=== PATIENT | female | born 1970 | race Caucasian/White ===

== ENCOUNTER 2017-03-14 14:33 | Inpatient (IN) | payer SELFPAY ==
[~2017-03-14] VITALS: Ht 165.1 cm; Wt 79.4 kg
[~2017-03-14 14:33] MED LIST: FLUD.1 PO; OXYC-392 PO; PANT40TA3 PO; POTA-163 PO
[2017-03-14 14:36] VITALS: BP 136/93; PULSE 127; RESP 20; TEMP 99.5; O2SAT 98
--- NOTE | 2017-03-14 15:15 | PD ---
Physical Exam Time Seen by Provider: 15:13 Narrative Resectional female presents with complaint of left fifth finger pain, swelling, bruising 4 days. Reports vomiting and diarrhea for 4 days. Unknown fevers. Unknown tetanus status. Denies IV drug use. + Lymphangitis to the left lower arm noted in triage. Patient seen in triage. VS reviewed. Awaiting bed placement. See next providers note for final patient disposition. Data Data Last Documented VS Vital Signs Date Time Temp Pulse Resp B/P (MAP) Pulse Ox O2 Delivery O2 Flow Rate FiO2 03/14/17 14:36 99.5 127 20 136/93 (107) 98 Room Air MDM Supervised Visit with TERESITA: Elly Mcclure Mar 14, 2017 15:15
[2017-03-14 15:39] VITALS: PULSE 101
--- NOTE | 2017-03-14 15:53 | PD ---
HPI Chief Complaint: Skin Problem Time Seen by Provider: 15:41 Travel History International Travel<30 days: No Contact w/Intl Traveler<30days: No Traveled to known affect area: No PFSH Past Medical History Anemia: Yes Arthritis: No Asthma: No Autoimmune Disease: No Bipolar Disorder: Yes Anxiety: Yes Depression: Yes Heart Rhythm Problems: No Cancer: No Cardiovascular Problems: Yes Chemotherapy: No Chest Pain: No Congestive Heart Failure: No COPD: No Cerebrovascular Accident: No Diabetes: No Diminished Hearing: No Endocrine: No Gastrointestinal Disorders: No GERD: No Genitourinary: No Hiatal Hernia: No Heparin Induced Thrombocytopen: No Hypertension: No Immune Disorder: No Implanted Vascular Access Dvce: No Kidney Stones: No Musculoskeletal: No Neurologic: No Psychiatric: Yes (CHRONIC ALCOHOLISM) Reproductive: No Respiratory: No Immunizations Current: Yes Migraines: Yes Radiation Therapy: No Schizophrenia: Yes Seizures: Yes Sickle Cell Disease: No Sleep Apnea: No Thyroid Disease: No Ulcer: No ?: Not Menopausal: Yes : 7 Para: 3 Miscarriage: 4 Tubal Ligation: Yes Past Surgical History Abdominal Surgery: No AICD: No Arteriovenous Shunt: No Cardiac Surgery: No Ear Surgery: No Endocrine Surgery: No Eye Surgery: No Genitourinary Surgery: No Gynecologic Surgery: Yes (Tubal Ligation ) Hysterectomy: Yes Insulin Pump: No Joint Replacement: No Neurologic Surgery: No Oral Surgery: No Pacemaker: No Thoracic Surgery: No Other Surgery: Yes (tubal ligation) Social History Alcohol Use: Yes ("COUPLE IN THE MORNING AND A COUPLE AT NIGHT") Tobacco Use: Yes (1 PPD) Substance Use: No Allergies-Medications (Allergen,Severity, Reaction): Coded Allergies: haloperidol (Unverified Allergy, Severe, 03/14/17) PT DENIES risperidone (Unverified Allergy, Severe, 03/14/17) *MDRO Multi-Drug Resistant Organism (Verified Adverse Reaction, Unknown, ) 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/2015 Reported Meds & Prescriptions Reported Meds & Active Scripts Active Potassium Chloride ER (Potassium Chloride) 20 Meq Tab 20 Meq PO DAILY Pantoprazole (Pantoprazole Sodium) 40 Mg Tab 40 Mg PO Q12HR 30 Days Review of Systems Except as stated in HPI: all other systems reviewed are Neg Data Data Last Documented VS Vital Signs Date Time Temp Pulse Resp B/P (MAP) Pulse Ox O2 Delivery O2 Flow Rate FiO2 03/14/17 15:39 101 03/14/17 15:25 16 03/14/17 14:36 99.5 98 Room Air Orders Orders Basic Metabolic Panel (Bmp) (03/14/17 16:12) Complete Blood Count With Diff (03/14/17 16:12) Iv Access Insert/Monitor (03/14/17 16:12) Ecg Monitoring (03/14/17 16:12) Oximetry (03/14/17 16:12) Sodium Chloride 0.9% Flush (Ns Flush) (03/14/17 16:15) Hand, Complete ([id number]) (03/14/17 ) Alcohol (Ethanol) (03/14/17 17:11) Blood Culture (03/14/17 17:11) Lactic Acid (03/14/17 17:11) Vancomycin Inj (Vancomycin Inj) (03/14/17 17:15) Piperacil-Tazo 4.5 Gm Premix (Zosyn 4.5 (03/14/17 17:15) Morphine Inj (Morphine Inj) (03/14/17 17:15) Sodium Chlor 0.9% 1000 Ml Inj (Ns 1000 M (03/14/17 17:15) Lidocaine 1% Inj (50 Ml) (Xylocaine 1% I (03/14/17 17:15) Vancomycin Inj (Vancomycin Inj) (03/14/17 18:00) Admit Order (Ed Use Only) (03/14/17 ) Labs Laboratory Tests Test 03/14/17 16:36 03/14/17 17:30 White Blood Count 12.0 TH/MM3 Red Blood Count 3.88 MIL/MM3 Hemoglobin 10.8 GM/DL Hematocrit 32.8 % Mean Corpuscular Volume 84.7 FL Mean Corpuscular Hemoglobin 27.7 PG Mean Corpuscular Hemoglobin Concent 32.8 % Red Cell Distribution Width 22.8 % Platelet Count 135 TH/MM3 Mean Platelet Volume 8.5 FL Neutrophils (%) (Auto) 83.0 % Lymphocytes (%) (Auto) 10.2 % Monocytes (%) (Auto) 5.9 % Eosinophils (%) (Auto) 0.2 % Basophils (%) (Auto) 0.7 % Neutrophils # (Auto) 9.9 TH/MM3 Lymphocytes # (Auto) 1.2 TH/MM3 Monocytes # (Auto) 0.7 TH/MM3 Eosinophils # (Auto) 0.0 TH/MM3 Basophils # (Auto) 0.1 TH/MM3 CBC Comment DIFF FINAL Differential Comment Blood Urea Nitrogen 4 MG/DL Creatinine 0.69 MG/DL Random Glucose 82 MG/DL Calcium Level 9.2 MG/DL Sodium Level 133 MEQ/L Potassium Level 4.0 MEQ/L Chloride Level 98 MEQ/L Carbon Dioxide Level 23.6 MEQ/L Anion Gap 11 MEQ/L Estimat Glomerular Filtration Rate 92 ML/MIN Ethyl Alcohol Level 179 MG/DL Lactic Acid Level 3.0 mmol/L MDM Medical Decision Making Medical Screen Exam Complete: Yes Emergency Medical Condition: Yes Rios Lloyd MD Mar 14, 2017 15:53
[2017-03-14] MEDS ORDERED: SODIUM CHLORIDE 0.9% FLUSH 10 ML FLUSH IV FLUSH PRN ×2 (16:15→19:00)
--- NOTE | 2017-03-14 16:52 | RADRPT ---
EXAM DATE/TIME: 03/14/2017 16:26 [place] COMPARISON: No previous studies available for comparison. INDICATIONS : Pain with no known injury. MEDICAL HISTORY : None. SURGICAL HISTORY : Tubal ligation. Hysterectomy. ENCOUNTER: Initial ACUITY: 4 - 6 days PAIN SCORE: 10/10 LOCATION: Right 5th Digit. FINDINGS: Three view examination of the right hand demonstrates no acute fracture or malalignment. There is sof t tissue swelling over the fifth digit. The carpal bones appear intact. The interphalangeal and meta carpophalangeal joints are intact. Bony mineralization is normal. CONCLUSION: Soft tissue swelling with no underlying bony abnormality. Ramsey Treviño MD on March 14, 2017 at 16:48 Board Certified Radiologist. This report was verified electronically.
[2017-03-14 17:01] LABS: AUTOMATED NEUTROPHIL # 9.9 TH/MM3 (1.8-7.7); BASOPHIL # 0.1 TH/MM3 (0-0.2); BASOPHIL % 0.7 % (0.0-2.0); EOSINOPHIL % 0.2 % (0.0-4.0); HEMATOCRIT 32.8 % (35.0-46.0); HEMOGLOBIN 10.8 GM/DL (11.6-15.3); LYMPH % 10.2 % (9.0-44.0); LYMPHOCYTE # 1.2 TH/MM3 (1.0-4.8); MEAN CELL VOLUME 84.7 FL (80.0-100.0); MEAN CORPUSCULAR HEMOGLOBIN 27.7 PG (27.0-34.0); MEAN CORPUSCULAR HGB CONC 32.8 % (32.0-36.0); MEAN PLATELET VOLUME 8.5 FL (7.0-11.0); MONO % 5.9 % (0.0-8.0); MONOCYTE # 0.7 TH/MM3 (0-0.9); PLATELET COUNT 135 TH/MM3 (150-450); RED BLOOD COUNT 3.88 MIL/MM3 (4.00-5.30); RED CELL DISTRIBUTION WIDTH 22.8 % (11.6-17.2)
[2017-03-14] MEDS ORDERED: SODIUM CHLOR 0.9% 1000 ML INJ 1,000 ML IV ONE (17:15)
[2017-03-14] MEDS ORDERED: MORPHINE SULFATE 2 MG/ML INJ IV PUSH ONE (17:15)
[2017-03-14] MEDS ORDERED: LIDOCAINE HCL 1% 50 ML VIAL INFIL ONE (17:15)
[2017-03-14] MEDS ORDERED: PIPERACIL-TAZO 4.5 GM PREMIX 100 ML IV ONE (17:15)
[2017-03-14] MEDS ORDERED: VANCOMYCIN INJ 200 ML IV SCH (17:15)
[2017-03-14 17:25] LABS: BICARBONATE 23.6 MEQ/L (21.0-32.0); CALCIUM 9.2 MG/DL (8.5-10.1); CREATININE 0.69 MG/DL (0.50-1.00)
--- NOTE | 2017-03-14 17:56 | PD ---
Physical Exam Time Seen by Provider: 17:[address] Lloyd asked me to incise and drain the blister of the left 5th finger. Data Data Last Documented VS Vital Signs Date Time Temp Pulse Resp B/P (MAP) Pulse Ox O2 Delivery O2 Flow Rate FiO2 03/14/17 15:39 101 03/14/17 15:25 16 03/14/17 14:36 99.5 98 Room Air Orders Orders Basic Metabolic Panel (Bmp) (03/14/17 16:12) Complete Blood Count With Diff (03/14/17 16:12) Iv Access Insert/Monitor (03/14/17 16:12) Ecg Monitoring (03/14/17 16:12) Oximetry (03/14/17 16:12) Sodium Chloride 0.9% Flush (Ns Flush) (03/14/17 16:15) Hand, Complete ([id number]) (03/14/17 ) Alcohol (Ethanol) (03/14/17 17:11) Blood Culture (03/14/17 17:11) Lactic Acid (03/14/17 17:11) Vancomycin Inj (Vancomycin Inj) (03/14/17 17:15) Piperacil-Tazo 4.5 Gm Premix (Zosyn 4.5 (03/14/17 17:15) Morphine Inj (Morphine Inj) (03/14/17 17:15) Sodium Chlor 0.9% 1000 Ml Inj (Ns 1000 M (03/14/17 17:15) Lidocaine 1% Inj (50 Ml) (Xylocaine 1% I (03/14/17 17:15) Vancomycin Inj (Vancomycin Inj) (03/14/17 18:00) Admit Order (Ed Use Only) (03/14/17 ) Labs Laboratory Tests Test 03/14/17 16:36 03/14/17 17:30 White Blood Count 12.0 TH/MM3 Red Blood Count 3.88 MIL/MM3 Hemoglobin 10.8 GM/DL Hematocrit 32.8 % Mean Corpuscular Volume 84.7 FL Mean Corpuscular Hemoglobin 27.7 PG Mean Corpuscular Hemoglobin Concent 32.8 % Red Cell Distribution Width 22.8 % Platelet Count 135 TH/MM3 Mean Platelet Volume 8.5 FL Neutrophils (%) (Auto) 83.0 % Lymphocytes (%) (Auto) 10.2 % Monocytes (%) (Auto) 5.9 % Eosinophils (%) (Auto) 0.2 % Basophils (%) (Auto) 0.7 % Neutrophils # (Auto) 9.9 TH/MM3 Lymphocytes # (Auto) 1.2 TH/MM3 Monocytes # (Auto) 0.7 TH/MM3 Eosinophils # (Auto) 0.0 TH/MM3 Basophils # (Auto) 0.1 TH/MM3 CBC Comment DIFF FINAL Differential Comment Blood Urea Nitrogen 4 MG/DL Creatinine 0.69 MG/DL Random Glucose 82 MG/DL Calcium Level 9.2 MG/DL Sodium Level 133 MEQ/L Potassium Level 4.0 MEQ/L Chloride Level 98 MEQ/L Carbon Dioxide Level 23.6 MEQ/L Anion Gap 11 MEQ/L Estimat Glomerular Filtration Rate 92 ML/MIN MDM Supervised Visit with TERESITA: Yes Narrative Course Dr. Lloyd asked me to incise and drain the blister of the left 5th finger. See my procedure note for incision and drainage. Procedures Procedure Narrative INCISION AND DRAINAGE OF ABSCESS: The area was prepped and was sterilely draped. The left fifth finger was digitally blocked with 1% lidocaine. A number 11 scalpel was used to make a less than 0.5 -cm incision across the base of the blister. The blister was drained. Cultures were obtained. Sterile dressing applied. Elly Martinez Mar 14, 2017 17:56
[2017-03-14] MEDS ORDERED: VANCOMYCIN 1,000 MG/NS 250 ML IV ONE ×2 (18:00)
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
[2017-03-14] MEDS ORDERED: BISACODYL 10 MG SUPP RECTAL PRN (19:00)
[2017-03-14] MEDS ORDERED: Vancomycin Consult Pharmacy 1 EA OTHER SCH (19:00)
[2017-03-14] MEDS ORDERED: MAGNESIUM HYDROXIDE SUSP 30 ML CUP PO PRN (19:00)
[2017-03-14] MEDS ORDERED: SENNOSIDES 8.6 MG TAB PO PRN (19:00)
[2017-03-14] MEDS ORDERED: LACTULOSE SYRUP 20 GM/30 ML CUP PO PRN (19:00)
[2017-03-14] MEDS ORDERED: ACETAMINOPHEN 325 MG TAB PO PRN (19:00)
[2017-03-14] MEDS ORDERED: LORazepam 2 MG/ML VIAL IV PUSH PRN ×3 (19:00)
[2017-03-14] MEDS ORDERED: LORazepam 2 MG TAB PO PRN (19:00)
[2017-03-14] MEDS ORDERED: FLUMAZENIL 0.5 MG/5 ML VIAL IV PUSH PRN (19:00)
--- NOTE | 2017-03-14 19:05 | HHI.HP ---
[facility] No Primary Care Physician Admission Diagnosis Finger infection, Sepsis. Diagnoses: (1) Sepsis Diagnosis: Principal (2) Finger infection Diagnosis: Principal (3) Alcohol abuse Diagnosis: Principal (4) Tobacco abuse Diagnosis: Principal Travel History International Travel<30 Days: No Contact w/Intl Traveler <30 Da: No Traveled to Known Affected Are: No History of Present Illness This is a 46-year-old female with a PMH of Anxiety, Depression, Bipolar Disorder , Alcohol Abuse and Tobacco Abuse who presented to the ER with complaints of left 5th finger swelling/pain for approx 3 days. States symptoms have been getting progressively worse, now w/ difficulty moving finger. Pain is severe, 10/10, constant, non-radiating. Denies fever or chills. On arrival, BP 136/93 , HR 127, O2 sat 98% on RA, Temp 99.5. WBC 12.0. Chemistry essentially unremarkable. Lactic Acid 3.0. Alcohol 179. Hand X-ray was soft tissue swelling, no underlying bony abnormality. S/p I&D of left 5th finger in ER. Blood/Wound Cultures, Vanc/Zosyn. Review of Systems Except as stated in HPI: all other systems reviewed are Neg ROS: 14 point review of systems otherwise negative. 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 No h/o DM or CAD Social History PAST SOCIAL HISTORY: Drinks daily. Smokes 1ppd. Negative for drugs. Physical Exam Vital Signs Vital Signs Date Time Temp Pulse Resp B/P (MAP) Pulse Ox O2 Delivery O2 Flow Rate FiO2 03/14/17 15:39 101 03/14/17 15:25 16 03/14/17 14:36 99.5 127 20 136/93 (107) 98 Room Air Physical Exam PE: GENERAL: Middle-aged white female in no acute distress, appears older than stated age. Friend at bedside. HEENT: PERRLA, EOMI. No scleral icterus or conjunctival pallor. No lid lag or facial droop. CARDIOVASCULAR: Regular rate and rhythm. No obvious murmurs to auscultation. No chest tenderness to palpation. RESPIRATORY: No obvious rhonchi or wheezing. Clear to auscultation. Breath sounds equal bilaterally. GASTROINTESTINAL: Abdomen soft, non-tender, nondistended. BS normal. MUSCULOSKELETAL: Extremities without clubbing, cyanosis, or edema. No obvious deformities. Left hand w/ 5th digit bruising/blistering/edema, decreased ROM of digit due to pain. Pulses intact. NEUROLOGICAL: Awake, alert and oriented x4. No focal neurologic deficits. Moving both upper and lower extremities spontaneously. Laboratory Laboratory Tests Test 03/14/17 16:36 03/14/17 17:30 White Blood Count 12.0 Red Blood Count 3.88 Hemoglobin 10.8 Hematocrit 32.8 Mean Corpuscular Volume 84.7 Mean Corpuscular Hemoglobin 27.7 Mean Corpuscular Hemoglobin Concent 32.8 Red Cell Distribution Width 22.8 Platelet Count 135 Mean Platelet Volume 8.5 Neutrophils (%) (Auto) 83.0 Lymphocytes (%) (Auto) 10.2 Monocytes (%) (Auto) 5.9 Eosinophils (%) (Auto) 0.2 Basophils (%) (Auto) 0.7 Neutrophils # (Auto) 9.9 Lymphocytes # (Auto) 1.2 Monocytes # (Auto) 0.7 Eosinophils # (Auto) 0.0 Basophils # (Auto) 0.1 CBC Comment DIFF FINAL Differential Comment Blood Urea Nitrogen 4 Creatinine 0.69 Random Glucose 82 Calcium Level 9.2 Sodium Level 133 Potassium Level 4.0 Chloride Level 98 Carbon Dioxide Level 23.6 Anion Gap 11 Estimat Glomerular Filtration Rate 92 Ethyl Alcohol Level 179 Lactic Acid Level 3.0 Date/Time Source Procedure Growth Status 03/14/17 17:30 Blood Peripheral Aerobic Blood Culture Pending Received 03/14/17 17:30 Blood Peripheral Anaerobic Blood Culture Pending Received 03/14/17 18:18 Wound Finger Gram Stain Pending Received 1/14/18 18:18 Wound Finger Wound Culture Pending Received Result Diagram: 03/14/17 1636 03/14/17 1636 Caprini VTE Risk Assessment Caprini VTE Risk Assessment: No/Low Risk (score <= 1) Caprini Risk Assessment Model Point Value = 1 Point Value = 2 Point Value = 3 Point Value = 5 Age 41-60 Minor surgery BMI > 25 kg/m2 Swollen legs Varicose veins or History of unexplained or recurrent spontaneous Oral contraceptives or hormone replacement Sepsis (< 1 month) Serious lung disease, including pneumonia (< 1 month) Abnormal pulmonary function Acute myocardial infarction Congestive heart failure (< 1 month) History of inflammatory bowel disease Medical patient at bed rest Age 61-74 Arthroscopic surgery Major open surgery (> 45 min) Laparoscopic surgery (> 45 min) Malignancy Confined to bed (> 72 hours) Immobilizing plaster cast Central venous access Age >= 75 History of VTE Family history of VTE Factor V Leiden Prothrombin [id number] Lupus anticoagulant Anticardiolipin antibodies Elevated serum homocysteine Heparin-induced thrombocytopenia Other congenital or acquired thrombophilia Stroke (< 1 month) Elective arthroplasty Hip, pelvis, or leg fracture Acute spinal cord injury (< 1 month) Prophylaxis Regimen Total Risk Factor Score Risk Level Prophylaxis Regimen 0-1 Low Early ambulation 2 Moderate Order ONE of the following: *Sequential Compression Device (SCD) *Heparin 5000 units SQ BID 3-4 Higher Order ONE of the following medications: *Heparin 5000 units SQ TID *Enoxaparin/Lovenox 40 mg SQ daily (WT < 150 kg, CrCl > 30 mL/min) *Enoxaparin/Lovenox 30 mg SQ daily (WT < 150 kg, CrCl > 10-29 mL/min) *Enoxaparin/Lovenox 30 mg SQ BID (WT < 150 kg, CrCl > 30 mL/min) AND/OR *Sequential Compression Device (SCD) 5 or more Highest Order ONE of the following medications: *Heparin 5000 units SQ TID (Preferred with Epidurals) *Enoxaparin/Lovenox 40 mg SQ daily (WT < 150 kg, CrCl > 30 mL/min) *Enoxaparin/Lovenox 30 mg SQ daily (WT < 150 kg, CrCl > 10-29 mL/min) *Enoxaparin/Lovenox 30 mg SQ BID (WT < 150 kg, CrCl > 30 mL/min) AND *Sequential Compression Device (SCD) Assessment and Plan Problem List: (1) Sepsis ICD Code: A41.9 - Sepsis, unspecified organism Status: Acute (2) Finger infection ICD Code: L08.9 - Local infection of the skin and subcutaneous tissue, unspecified (3) Alcohol abuse ICD Code: F10.10 - Alcohol abuse, uncomplicated Status: Chronic (4) Tobacco abuse ICD Code: Z72.0 - Tobacco use Status: Chronic Assessment and Plan A/P: 1. Sepsis: Temp 99.5, HR 127, Lactic Acid 3.0, Source-Finger Infection. S/p Blood/Wound Cultures, Vanc/Zosyn. Follow up cultures, continue IV Abx, repeat Lactic Acid. IVF for hydration. 2. Left Finger Infection: +bruising/blistering/edema, decreased ROM, s/p I&D in ER, follow up cultures. Continue w/ broad spectrum antibiotics, consult Hand for further evaluation, possible surgical intervention. Wound Management as needed. X-ray w/ soft tissue swelling, no acute bony abnormality, images reviewed by me. 3. Alcohol Abuse: Drinks Daily. Alcohol 179. High risk for withdrawal, Seizure Precautions, Ativan, MVT/Thiamine/Folate 4. Tobacco Abuse: Pt counselled. NicoDerm prn if needed. 5. DVT Prophylaxis: SCD/Teds. 6. Social work for d/c planning as needed. Pt is homeless 7. Labs/records/imaging reviewed by me, case discussed at length w/ ER physician. Physician Certification 2 Midnight Certification Type: Admission for Inpatient Services Order for Inpatient Services The services are ordered in accordance with Medicare regulations or non- Medicare payer requirements, as applicable. In the case of services not specified as inpatient-only, they are appropriately provided as inpatient services in accordance with the 2-midnight benchmark. Estimated LOS (days): 2 days is the estimated time the patient will need to remain in the hospital, assuming treatment plan goals are met and no additional complications. Post-Hospital Plan: Not yet determined Nita Marquez MD Mar 14, 2017 19:05
[2017-03-14] MEDS: LORazepam 2 MG/ML VIAL IV PUSH PRN ×2 (20:17→20:26)
[2017-03-14 21:00] VITALS: BP 138/83; PULSE 110; RESP 18; TEMP 98.1; O2SAT 98
[2017-03-14] MEDS ORDERED: VANCOMYCIN INJ 750 MG in SODIUM CHLOR 0.9% 250 ML INJ 250 ML IV ONE (21:00)
[2017-03-14] MEDS: SODIUM CHLORIDE 0.9% FLUSH 10 ML FLUSH IV FLUSH SCH (21:00)
[2017-03-14] MEDS: MORPHINE SULFATE 2 MG/ML INJ IV PUSH PRN (22:04)
[2017-03-14] MEDS: DOCUSATE SODIUM 50 MG/SENNA 8.6 MG TAB PO SCH (22:15)
[2017-03-14] MEDS: SODIUM CHLOR 0.9% 1000 ML INJ 1,000 ML IV SCH (22:19)
[2017-03-14] MEDS: ONDANSETRON HCL 4 MG/2 ML VIAL IVP PRN (23:00)
[2017-03-15] VITALS (7 sets, daily range): BP systolic 133–148; BP diastolic 72–92; PULSE 80–127; RESP 17–20; TEMP 98.3–100.6; O2SAT 94–97
[2017-03-15] MEDS: MORPHINE SULFATE 2 MG/ML INJ IV PUSH PRN (05:23)
[2017-03-15] MEDS: SODIUM CHLOR 0.9% 1000 ML INJ 1,000 ML IV SCH ×2 (05:23→13:54)
[2017-03-15] MEDS: LORazepam 1 MG TAB PO PRN ×3 (05:23→20:40)
[2017-03-15 08:20] LABS: BASOPHIL # 0.1 TH/MM3 (0-0.2); BASOPHIL % 0.9 % (0.0-2.0); EOSINOPHIL % 0.4 % (0.0-4.0); HEMATOCRIT 29.3 % (35.0-46.0); HEMOGLOBIN 9.8 GM/DL (11.6-15.3); LYMPH % 12.6 % (9.0-44.0); LYMPHOCYTE # 1.3 TH/MM3 (1.0-4.8); MEAN CORPUSCULAR HEMOGLOBIN 28.5 PG (27.0-34.0); MEAN CORPUSCULAR HGB CONC 33.5 % (32.0-36.0); MEAN PLATELET VOLUME 8.4 FL (7.0-11.0); MONO % 10.3 % (0.0-8.0); MONOCYTE # 1.1 TH/MM3 (0-0.9); NEUT % 75.8 % (16.0-70.0); PLATELET COUNT 107 TH/MM3 (150-450); RED BLOOD COUNT 3.45 MIL/MM3 (4.00-5.30); RED CELL DISTRIBUTION WIDTH 21.9 % (11.6-17.2); WHITE BLOOD COUNT 10.5 TH/MM3 (4.0-11.0)
[2017-03-15] MEDS: SODIUM CHLORIDE 0.9% FLUSH 10 ML FLUSH IV FLUSH SCH ×2 (08:35→20:41)
[2017-03-15] MEDS: PANTOPRAZOLE SOD 40 MG DELAYED RELEASE TAB PO SCH ×2 (08:35→20:41)
[2017-03-15] MEDS: MULTIVITAMINS/MINERALS THERAPEUTIC TAB PO SCH (08:35)
[2017-03-15] MEDS: VANCOMYCIN INJ 1,250 MG in SODIUM CHLOR 0.9% 250 ML INJ 250 ML IV SCH ×2 (08:35→22:07)
[2017-03-15] MEDS: THIAMINE HCL 100 MG TAB PO SCH (08:35)
[2017-03-15] MEDS: DOCUSATE SODIUM 50 MG/SENNA 8.6 MG TAB PO SCH ×2 (08:35→20:41)
[2017-03-15] MEDS: FOLIC ACID 1 MG TAB PO SCH (08:35)
[2017-03-15] MEDS: CEFEPIME INJ 1,000 MG in SODIUM CHLORIDE 0.9% INJ 100 ML IV SCH ×2 (08:36→20:42)
[2017-03-15 08:51] LABS: ALBUMIN 3.4 GM/DL (3.4-5.0); ALKALINE PHOSPHATASE 119 U/L (45-117); ALT (GPT) 42 U/L (10-53); AST (GOT) 68 U/L (15-37); BICARBONATE 25.2 MEQ/L (21.0-32.0); BLOOD UREA NITROGEN 4 MG/DL (7-18); CALCIUM 8.9 MG/DL (8.5-10.1); CHLORIDE 98 MEQ/L (98-107); CREATININE 0.54 MG/DL (0.50-1.00); GLOMERULAR FILTRATION RATE 122 ML/MIN (>89); GLUCOSE,RANDOM 96 MG/DL (74-106); SODIUM (NA) 133 MEQ/L (136-145); TOTAL BILIRUBIN ADULT 0.9 MG/DL (0.2-1.0); TOTAL PROTEIN 8.5 GM/DL (6.4-8.2)
[2017-03-15] MEDS: ACETAMINOPHEN/HYDROcodone 325 MG/5 MG TAB PO PRN (11:38)
[2017-03-15] MEDS ORDERED: DEXAMETHASONE SOD PHOS 4 MG/ML VIAL IV ONE (12:00)
[2017-03-15] MEDS ORDERED: GLYCOPYRROLATE 1 MG/5 ML SYRINGE IV PUSH ONE (12:00)
[2017-03-15] MEDS ORDERED: ONDANSETRON HCL 4 MG/2 ML VIAL IV PUSH ONE (12:00)
[2017-03-15] MEDS ORDERED: LIDOCAINE HCL 1% PF 5 ML SYRINGE OTHER ONE (12:00)
[2017-03-15] MEDS ORDERED: PROPOFOL 200 MG/20 ML AMP IV ONE (12:00)
--- NOTE | 2017-03-15 14:39 | MB ---
cc: YUDITH AGUILLON III, M.D. DATE OF CONSULTATION 03/14/2017 HISTORY OF PRESENT ILLNESS The patient is a 46-year-old female who looks much older than her stated age, who was admitted yesterday and I was consulted late last night. She has soft tissue swelling in her left hand, especially around her small finger with no real history on how it happened. The patient is a poor historian. She does not know how it happened. She denies any injury to it. She had very limited incision and drainage of a blister in the emergency room yesterday which was ineffective, so we need to go to the operating room today. PAST MEDICAL HISTORY 1. Anxiety. 2. Depression. 3. Bipolar border. 4. Alcohol abuse. 5. Tobacco abuse. 6. Elevated liver enzymes. PAST SURGICAL HISTORY 1. Tubal ligation. 2. Hysterectomy. ALLERGIES 1. HALOPERIDOL. 2. RISPERIDONE. SOCIAL HISTORY Smokes one pack per day. Drinks alcohol daily. FAMILY HISTORY Noncontributory to this illness. REVIEW OF SYSTEMS Patient is not complaining of any weight loss or weight gain. She is not complaining of any cough, wheezing or shortness breath. She is not complaining of any chest pain or palpitations. She is not complaining of any nausea, vomiting or abdominal pain. She is not complaining of any burning, frequency or urgency with urination. She is not complaining of any spine, neck or back pain. She is not complaining of any anxiety, depression or suicidal ideation. She is not complaining of any lesions, rashes or eruptions except for the left fifth finger. LABORATORY White blood cell count was 12,010, down to 10,000 thousand; hemoglobin 9.8, platelet count 107,000. Elevated liver enzymes. Culture of the left fifth finger yesterday grew out staph species as well as group-A beta strep. MEDICATIONS Her in the hospital she is on: 1. Folic acid. 2. Thiamine. 3. Multivitamins. 4. Cefepime. 5. Vancomycin. 6. Protonix. 7. Ativan. 8. Zofran. 9. Baker. 10.Morphine. PHYSICAL EXAMINATION GENERAL: Well-developed, well-nourished, in no apparent distress lying comfortably in her bed with her left arm in a sling, but in bed dependent. VITAL SIGNS: Temperature 99.2, blood pressure 134/85, heart rate 97, respiratory rate 16. LEFT UPPER EXTREMITY: There is full active range of motion. There is no edema or induration in the hand. She does have significant edema and superficial epidermolysis with fluid collection underneath most of the skin of the left fifth finger. It was not decompressed adequately in a more conservative manner and needs to be treated more aggressively. There is no proximal streaking across the wrist. There is capillary refill of less than two seconds in all fingertips. The skin is otherwise normal in appearance and temperature. Her respiratory effort is normal. She is otherwise pleasant. IMPRESSION Left fifth finger abscess. PLAN The plan is to go to the operating room later today for incision and drainage/debridement of the left fifth finger. I discussed this with the patient. She understands and is requesting we proceed. MD JAGDISH Ruiz III/RIMMA /1:54 PM /2:19 PM
[2017-03-15] MEDS: ONDANSETRON HCL 4 MG/2 ML VIAL IVP PRN (14:44)
[2017-03-15] MEDS ORDERED: LIDOCAINE HCL 2% 50 ML VIAL ONE (18:11)
[2017-03-15] MEDS ORDERED: BUPIVACAINE HCL PF 0.5% 30 ML VIAL ONE (18:11)
[2017-03-15] MEDS ORDERED: NEOMYCIN/POLYMYXIN 1 ML G.U. IRRIGANT ONE (18:13)
[2017-03-15] MEDS ORDERED: NEOMYCIN/POLYMYXIN 1 ML G.U. IRRIGANT IRRIGATION ONE (19:13)
[2017-03-15] MEDS ORDERED: DO NOT ADM ANY ANTICOAGULANT DRUGS PRN (19:45)
--- NOTE | 2017-03-15 20:08 | HHI.PR ---
Subjective Remarks Patient seen this morning. Reports pain is controlled. Denies any chest pain or shortness of breath. She does report occasional nausea and nonbloody vomiting which has resolved Objective Vital Signs Date Time Temp Pulse Resp B/P (MAP) Pulse Ox O2 Delivery O2 Flow Rate FiO2 03/15/17 19:45 82 16 122/81 (95) 97 Room Air 03/15/17 19:30 96 16 113/73 (86) 97 Room Air 03/15/17 19:21 98.2 88 16 121/79 (93) 100 03/15/17 16:00 99.1 80 20 148/89 (108) 95 03/15/17 12:46 16 03/15/17 12:00 99.2 97 20 134/85 (101) 95 03/15/17 08:11 98.5 109 20 139/92 (108) 95 03/15/17 07:49 127 03/15/17 04:00 100.6 109 19 141/89 (106) 97 03/15/17 00:00 98.3 107 18 133/84 (100) 96 03/14/17 21:00 98.1 110 18 138/83 (101) 98 I/O 03/14/17 03/14/17 03/14/17 03/15/17 03/15/17 03/15/17 07:00 15:00 23:00 07:00 15:00 23:00 Intake Total 1100 ml 1315 ml 300 ml Output Total 5 ml Balance 1100 ml 1315 ml 295 ml Intake IV Total 1100 ml 1315 ml Other 300 ml Output Estimated Blood Loss 5 ml # Voids 3 5 # Bowel Movements 0 0 Result Diagram: 03/15/17 0800 03/15/17 0800 A/P Assessment and Plan //Sepsis: Temp 99.5, HR 127, Lactic Acid 3.0, Source-Finger Infection. S/p Blood/Wound Cultures, Vanc/Zosyn. Follow up cultures, continue IV Abx, repeat Lactic Acid. IVF for hydration. = Group A beta strep and staph. Continue IV antibiotics. Follow-up susceptibilities. // Left Finger Infection: +bruising/blistering/edema, decreased ROM, s/p I&D in ER, follow up cultures. Continue w/ broad spectrum antibiotics, consult Hand for further evaluation, possible surgical intervention. Wound Management as needed. X-ray w/ soft tissue swelling, no acute bony abnormality, images reviewed by me. =Hand surgery continues to follow. Continue broad-spectrum anabiotic. Follow- up cultures sensitivities //Alcohol Abuse: Drinks Daily. Alcohol 179. High risk for withdrawal, Seizure Precautions, Ativan, MVT/Thiamine/Folate = No current signs of withdrawal. Continue to monitor // Tobacco Abuse: Pt counselled. NicoDerm prn if needed. //hypokalemia. Potassium 3.1. Replaced. Recheck tomorrow. // DVT Prophylaxis: SCD/Teds. Discharge Planning pending culture results. And surgery continues to follow. Pending final recommendations. Ben Blanton MD Mar 15, 2017 20:08
[2017-03-15] MEDS ORDERED: POTASSIUM CHLORIDE 10 MEQ CONTROLLED RELEASE TAB PO ONE (20:15)
[2017-03-15] MEDS ORDERED: predniSONE 20 MG TAB PO ONE (20:45)
[2017-03-16] VITALS (10 sets, daily range): BP systolic 111–153; BP diastolic 62–89; PULSE 73–101; RESP 17–18; TEMP 98.1–99.1; O2SAT 95–98
[2017-03-16] MEDS: SODIUM CHLOR 0.9% 1000 ML INJ 1,000 ML IV SCH ×2 (00:59→07:59)
[2017-03-16] MEDS: ACETAMINOPHEN/HYDROcodone 325 MG/5 MG TAB PO PRN ×2 (05:15→16:50)
[2017-03-16] MEDS: THIAMINE HCL 100 MG TAB PO SCH (07:49)
[2017-03-16] MEDS: MULTIVITAMINS/MINERALS THERAPEUTIC TAB PO SCH (07:49)
[2017-03-16] MEDS: FOLIC ACID 1 MG TAB PO SCH (07:50)
[2017-03-16] MEDS: DOCUSATE SODIUM 50 MG/SENNA 8.6 MG TAB PO SCH ×2 (07:50→19:53)
[2017-03-16] MEDS: predniSONE 20 MG TAB PO SCH (07:50)
[2017-03-16] MEDS: SODIUM CHLORIDE 0.9% FLUSH 10 ML FLUSH IV FLUSH SCH ×2 (07:50→21:00)
[2017-03-16] MEDS: PANTOPRAZOLE SOD 40 MG DELAYED RELEASE TAB PO SCH ×2 (07:50→19:53)
[2017-03-16] MEDS: CEFEPIME INJ 1,000 MG in SODIUM CHLORIDE 0.9% INJ 100 ML IV SCH (07:51)
[2017-03-16] MEDS: LORazepam 1 MG TAB PO PRN (07:57)
[2017-03-16] MEDS ORDERED: PHARMACY ORDERED LAB ONE (08:45)
[2017-03-16] MEDS: VANCOMYCIN INJ 1,250 MG in SODIUM CHLOR 0.9% 250 ML INJ 250 ML IV SCH (09:47)
[2017-03-16 10:53] LABS: ALBUMIN 2.8 GM/DL (3.4-5.0); BICARBONATE 20.4 MEQ/L (21.0-32.0); CALCIUM 8.5 MG/DL (8.5-10.1); CREATININE 0.46 MG/DL (0.50-1.00); MAGNESIUM 2.2 MG/DL (1.5-2.5); PHOSPHORUS 2.4 MG/DL (2.5-4.9)
--- NOTE | 2017-03-16 13:48 | PD.WCN.NOT ---
Wound Consult Description: Wound consult ordered by for generalized Communicated with: Haider BARAHONA [address] [place] [address], Recommendation: 1) Cleanse Left 5th digit with normal saline pat dry 2) Apply Xeroform to beefy red tissue 3) Cover with nonadhesive gauze 4) Secure with rolled gauze and tape 5) Change dressing daily 6) Follow up with surgeon. Additional Information: Patient was seen today on [address] [place] [address] by copywriter and Haider BARAHONA [address] [place] [address]. Patient alert in bed dressing removed to Left 5th digit to expose Beefy red 50% glandular tissue and 50% red/pink tissue measuring ~4.6cm x ~2.0cm .Digit cleansed with normal saline pat dry Xeroform applied in single layer to open tissue.Covered with non adhering dressing secured with rolled gauze/tape.Patient tolerated wound care well. Shi Greco [facility] Mar 16, 2017 13:47
--- NOTE | 2017-03-16 14:29 | MP ---
cc: CHOLO PÉREZ III, M.D. DATE OF SURGERY: 03/15/2017 PREOPERATIVE DIAGNOSIS: Left finger abscess. POSTOPERATIVE DIAGNOSIS: Left finger abscess, pyoderma gangrenosum. OPERATION: Incision and drainage left fifth finger. SURGEON Cholo Pérez III, MD. PROCEDURE The patient brought to the operating room placed supine on the operating room table after the correct site of surgery were verified by members of each team, multiple times including the patient myself and after adequate preop markings preoperative written consent was verified by one, after adequate preop time-out was performed with satisfaction after adequate general anesthesia achieved, left upper extremity prepped and draped in traditional sterile surgical fashion. The left fifth finger was examined and found to be superficially blistered along its entire volar and dorsal surface. There was purulent fluid within the blisters and these were sharply excised without disturbing the underlying skin. There was a scalded appearance of all the surfaces of the skin of the finger which is very suspicious for diagnosis of pyoderma gangrenosum. At this point I was a large pressed to do any more dissection for fear of worsening the inflammatory response. The finger was gently irrigated and Xeroform dressing was applied around the wound over the entire finger non circumferentially with a bulky sterile dressing was applied. Hemostasis was present. Capillary refill is less than 2 seconds in all fingertips including the fifth finger bulky soft, protective dressing was applied. The patient was awakened from anesthesia and transported to Post Anesthesia Care Unit, was awake and in stable condition at the end of the case. The sponge and needle, instrument count correct at the case as reported by nurses in the room. MD JAGDISH Ruiz III/dima /7:19 PM /10:02 AM
--- NOTE | 2017-03-16 14:44 | MB ---
cc: PAPITO BAINS MD DATE OF CONSULTATION 03/16/[address] Blanton REASON FOR CONSULTATION Positive blood cultures. HISTORY OF PRESENT ILLNESS This is a 46-year-old white female who presented to the emergency department with an injury to her left fifth finger. The patient was noted to have lymphangitis at the left arm as well. She was evaluated with an x-ray of the hand which showed soft tissue swelling. The patient is a poor historian. The only thing she remembers was having an area of swelling at the tip of the left fifth finger and then it spread and became painful. She had low grade fever of 100.6 degrees early yesterday. Blood cultures were taken on admission and one bottle has gram-positive cocci. A wound culture was taken from the finger on 03/14 after it was lanced in the ED. This culture has growth of MRSA and group B beta strep. The patient was taken to surgery by the hand surgeon for incision and debridement of the wound yesterday. A new culture was also taken at that time. The results are pending. The white blood cell was 12.0 on 03/14 and today it is 10.5. PAST MEDICAL HISTORY 1. Anxiety depression 2. Bipolar disorder 3. Alcohol abuse 4. Tobacco abuse 5. History of tubal ligation. 6. History of hysterectomy. ALLERGIES HALOPERIDOL, RISPERDONE. MEDICATIONS 1. Vancomycin 2. Prednisone 3. cefepime 4. Theragran 5. Thiamine 6. Folate 7. Protonix 8. Florencia-Colace 9. [place] five p.r.n. SOCIAL HISTORY The patient smokes a pack of cigarettes a day. Positive daily alcohol use. No illicit drugs. FAMILY HISTORY Noncontributory REVIEW OF SYSTEMS Negative on 10-point review except for pain in the left finger. PHYSICAL EXAM This is a slender female who is in no acute distress. She is awake, alert and oriented. VITAL SIGNS: Include a temperature 98.7, BP 153/89, heart rate 90, respirations 17. HEENT: The head is atraumatic. Extraocular movements grossly intact, pupils reactive to light. No icterus. Oropharynx moist mucosa without lesions. NECK: Supple. LUNGS: Clear to auscultation. HEART: Regular S1 and S2 without murmurs, rubs or gallops. ABDOMEN: Bowel sounds present, soft, nontender. RECTAL: Not performed. EXTREMITIES: The left fifth finger is wrapped in a surgical dressing and this was not removed for inspection at this time. No visible erythema at the wrist or above. The remaining extremities have no clubbing, cyanosis or edema. SKIN: No visible rash. NEUROLOGIC: No gross focal findings. PSYCH: The patient cannot cooperate. LABORATORY DATA WBC 10.5, platelets 107, hemoglobin 9.8, 75% neutrophils, 12% lymphocytes, 10% monocytes, creatinine 0.14, BUN 5, sodium 133. IMPRESSION 1. Bacteremia due to gram-positive cocci with blood culture showing gram- positive cocci in one bottle of four which is very likely contamination. 2. Abscess of the left fifth finger due to MRSA and group B beta strep. RECOMMENDATIONS 1. Continue vancomycin 2. Discontinue cefepime 3. Monitor the new culture from the wound and also monitor clinical response to antibiotic. The patient's progress will be monitored and further recommendations will be given on antibiotic treatment on followup. Papito Bains MD FD/JAMI /12:33 PM /12:48 PM RALPH
--- NOTE | 2017-03-16 15:50 | HHI.PR ---
Subjective Remarks Patient seen today around 1 PM. Says she is feeling all right. Reports pain is controlled. Denies any chest pain or shortness of breath. Denies any nausea or vomiting. Objective Vital Signs Date Time Temp Pulse Resp B/P (MAP) Pulse Ox O2 Delivery O2 Flow Rate FiO2 03/16/17 11:58 98.7 90 17 153/89 (110) 97 03/16/17 08:11 98.6 93 17 127/86 (100) 95 03/16/17 07:39 73 03/16/17 05:12 98.7 73 17 114/62 (79) 97 03/16/17 04:06 81 03/16/17 00:30 98.1 101 17 111/62 (78) 96 03/15/17 20:30 98.6 84 17 135/72 (93) 94 03/15/17 19:45 82 16 122/81 (95) 97 Room Air 03/15/17 19:30 96 16 113/73 (86) 97 Room Air 03/15/17 19:21 98.2 88 16 121/79 (93) 100 03/15/17 16:00 99.1 80 20 148/89 (108) 95 I/O 03/15/17 03/15/17 03/15/17 03/16/17 03/16/17 03/16/17 07:00 15:00 23:00 07:00 15:00 23:00 Intake Total 1315 ml 400 ml 490 ml Output Total 5 ml Balance 1315 ml 395 ml 490 ml Intake Oral 240 ml IV Total 1315 ml 100 ml 250 ml Other 300 ml Output Estimated Blood Loss 5 ml # Voids 5 2 4 # Bowel Movements 0 Result Diagram: 03/15/17 0800 03/16/17 0925 Objective Remarks GENERAL: Patient sitting up in bed. Appears comfortable. Alert and oriented 3. SKIN: Warm and dry. HEAD: Normocephalic. EYES: No scleral icterus. No injection or drainage. NECK: Supple, trachea midline. No JVD. CARDIOVASCULAR: Regular rate and rhythm without murmurs, gallops, or rubs. RESPIRATORY: Breath sounds equal bilaterally. No accessory muscle use. GASTROINTESTINAL: Abdomen soft, non-tender, nondistended. MUSCULOSKELETAL: No cyanosis, or edema. Left hand dressed. Peripheral perfusion intact. BACK: Nontender without obvious deformity. No CVA tenderness. A/P Assessment and Plan //Severe Sepsis on admission - due to lactic acid 3.0: Temp 99.5, HR 127, Lactic Acid 3.0, Source-Finger Infection MRSA. S/p Blood/Wound Cultures, Vanc/Zosyn. Follow up cultures, continue IV Abx, repeat Lactic Acid. IVF for hydration. = Group A beta strep and staph. Continue IV antibiotics. Follow-up susceptibilities. -ID following. Antibiotics as per infectious disease. Follow-up Final wound susceptibilities //Gram-positive bacteremia. Likely contamination as per infectious disease. Appreciate assistance. // Left Finger Infection: +MRSA - +bruising/blistering/edema, decreased ROM, s/p I&D in ER, follow up cultures. Continue w/ broad spectrum antibiotics, consult Hand for further evaluation, possible surgical intervention. Wound Management as needed. X-ray w/ soft tissue swelling, no acute bony abnormality, images reviewed by me. =Hand surgery continues to follow. Continue broad-spectrum anabiotic. Follow- up cultures sensitivities //Alcohol Abuse: Drinks Daily. Alcohol 179. High risk for withdrawal, Seizure Precautions, Ativan, MVT/Thiamine/Folate = No current signs of withdrawal. Continue to monitor // Tobacco Abuse: Pt counselled. NicoDerm prn if needed. //hypokalemia. Potassium 3.4. Replaced again. Recheck tomorrow. // DVT Prophylaxis: SCD/Teds. Discharge Planning pending culture results. hand surgery continues to follow. Pending final recommendations. Ben Blanton MD Mar 16, 2017 15:50
[2017-03-16] MEDS ORDERED: POTASSIUM CHLORIDE 10 MEQ CONTROLLED RELEASE TAB PO ONE (16:00)
[2017-03-16] MEDS: VANCOMYCIN 1,000 MG/NS 250 ML IV SCH ×2 (16:49)
[2017-03-17] VITALS (10 sets, daily range): BP systolic 117–148; BP diastolic 59–88; PULSE 73–109; RESP 17–18; TEMP 97.8–98.3; O2SAT 95–100
[2017-03-17] MEDS: VANCOMYCIN 1,000 MG/NS 250 ML IV SCH ×6 (02:19→17:40)
[2017-03-17] MEDS: ACETAMINOPHEN/HYDROcodone 325 MG/5 MG TAB PO PRN ×5 (02:22→21:33)
[2017-03-17] MEDS: SODIUM CHLOR 0.9% 1000 ML INJ 1,000 ML IV SCH ×2 (06:59→07:27)
[2017-03-17] MEDS: SODIUM CHLORIDE 0.9% FLUSH 10 ML FLUSH IV FLUSH SCH ×2 (09:00→21:33)
[2017-03-17] MEDS: THIAMINE HCL 100 MG TAB PO SCH (09:30)
[2017-03-17] MEDS: MULTIVITAMINS/MINERALS THERAPEUTIC TAB PO SCH (09:30)
[2017-03-17] MEDS: DOCUSATE SODIUM 50 MG/SENNA 8.6 MG TAB PO SCH ×2 (09:31→21:33)
[2017-03-17] MEDS: PANTOPRAZOLE SOD 40 MG DELAYED RELEASE TAB PO SCH ×2 (09:31→21:33)
[2017-03-17] MEDS: FOLIC ACID 1 MG TAB PO SCH (09:31)
[2017-03-17] MEDS: predniSONE 20 MG TAB PO SCH (09:31)
[2017-03-17] MEDS: LORazepam 1 MG TAB PO PRN (09:39)
[2017-03-17 11:21] LABS: AUTOMATED NEUTROPHIL # 3.6 TH/MM3 (1.8-7.7); BASOPHIL # 0.1 TH/MM3 (0-0.2); BASOPHIL % 1.3 % (0.0-2.0); EOSINOPHIL # 0.1 TH/MM3 (0-0.4); EOSINOPHIL % 1.4 % (0.0-4.0); HEMATOCRIT 28.7 % (35.0-46.0); HEMOGLOBIN 9.2 GM/DL (11.6-15.3); LYMPH % 27.5 % (9.0-44.0); LYMPHOCYTE # 1.7 TH/MM3 (1.0-4.8); MEAN CELL VOLUME 86.3 FL (80.0-100.0); MEAN CORPUSCULAR HEMOGLOBIN 27.7 PG (27.0-34.0); MEAN CORPUSCULAR HGB CONC 32.1 % (32.0-36.0); MEAN PLATELET VOLUME 8.4 FL (7.0-11.0); MONO % 9.8 % (0.0-8.0); MONOCYTE # 0.6 TH/MM3 (0-0.9); PLATELET COUNT 132 TH/MM3 (150-450); RED BLOOD COUNT 3.32 MIL/MM3 (4.00-5.30); RED CELL DISTRIBUTION WIDTH 22.5 % (11.6-17.2); WHITE BLOOD COUNT 6.1 TH/MM3 (4.0-11.0)
--- NOTE | 2017-03-17 12:50 | HHI.IDPN ---
Note Infectious Disease Note Patient without complaint except for pain at the left 5th finger. Afebrile PAST MEDICAL HISTORY 1. Anxiety depression 2. Bipolar disorder 3. Alcohol abuse 4. Tobacco abuse 5. History of tubal ligation. 6. History of hysterectomy. ALLERGIES HALOPERIDOL, RISPERDONE. MEDICATIONS 1. Vancomycin SOCIAL HISTORY The patient smokes a pack of cigarettes a day. Positive daily alcohol use. No illicit drugs. OBJECTIVE: Vital Signs Date Time Temp Pulse Resp B/P (MAP) Pulse Ox O2 Delivery O2 Flow Rate FiO2 03/17/17 11:16 100 03/17/17 08:00 98.0 82 18 148/87 (107) 100 03/17/17 04:00 98.3 85 17 117/59 (78) 96 03/17/17 03:30 73 03/17/17 00:00 98.2 86 18 143/67 (92) 99 03/16/17 21:00 78 03/16/17 20:00 98.3 88 18 134/85 (101) 98 03/16/17 17:52 18 03/16/17 16:06 97 03/16/17 15:47 99.1 98 17 135/87 (103) 96 Laboratory Tests Test 03/17/17 09:50 White Blood Count 6.1 TH/MM3 Red Blood Count 3.32 MIL/MM3 Hemoglobin 9.2 GM/DL Hematocrit 28.7 % Mean Corpuscular Volume 86.3 FL Mean Corpuscular Hemoglobin 27.7 PG Mean Corpuscular Hemoglobin Concent 32.1 % Red Cell Distribution Width 22.5 % Platelet Count 132 TH/MM3 Mean Platelet Volume 8.4 FL Neutrophils (%) (Auto) 60.0 % Lymphocytes (%) (Auto) 27.5 % Monocytes (%) (Auto) 9.8 % Eosinophils (%) (Auto) 1.4 % Basophils (%) (Auto) 1.3 % Neutrophils # (Auto) 3.6 TH/MM3 Lymphocytes # (Auto) 1.7 TH/MM3 Monocytes # (Auto) 0.6 TH/MM3 Eosinophils # (Auto) 0.1 TH/MM3 Basophils # (Auto) 0.1 TH/MM3 CBC Comment DIFF FINAL Differential Comment Hematology Comments Laboratory Tests Test 03/16/17 09:25 03/17/17 09:50 Blood Urea Nitrogen 5 MG/DL Creatinine 0.46 MG/DL Random Glucose 140 MG/DL Albumin 2.8 GM/DL Calcium Level 8.5 MG/DL Phosphorus Level 2.4 MG/DL Magnesium Level 2.2 MG/DL Sodium Level 133 MEQ/L Potassium Level 3.4 MEQ/L Chloride Level 100 MEQ/L Carbon Dioxide Level 20.4 MEQ/L Anion Gap 13 MEQ/L Estimat Glomerular Filtration Rate 146 ML/MIN Microbiology Date/Time Source Procedure Growth Status 03/14/17 17:30 Blood Peripheral Aerobic Blood Culture - Preliminary NO GROWTH IN 3 DAYS Resulted 03/14/17 17:30 Anaerobic Blood Culture - Preliminary Gram Positive Cocci Resulted 03/14/17 17:15 Blood Peripheral Aerobic Blood Culture - Preliminary NO GROWTH IN 3 DAYS Resulted 03/14/17 17:15 Blood Peripheral Anaerobic Blood Culture - Preliminary NO GROWTH IN 3 DAYS Resulted 03/15/17 19:07 Wound Finger Fungal Smear - Final NO FUNGAL ELEMENTS SEEN. Resulted 03/15/17 19:07 Wound Finger Fungal Culture Pending Resulted 03/15/17 19:07 Wound Finger Acid Fast Stain - Final NO ACID FAST BACILLI SEEN Resulted 03/15/17 19:07 Wound Finger Mycobacterial Culture Pending Resulted 03/15/17 19:07 Wound Finger Gram Stain - Final Complete 03/15/17 19:07 Wound Culture - Final S. Aureus Mrsa Group A Beta Strep Complete 03/14/17 18:18 Wound Finger Gram Stain - Final Complete 03/14/17 18:18 Wound Culture - Final Group A Beta Strep S. Aureus Mrsa Complete PHYSICAL EXAM GENERAL: No acute distress. HEENT: No icterus. Oropharynx moist mucosa without lesions. NECK: Supple. LUNGS: Clear to auscultation. HEART: Regular S1 and S2 without murmurs, rubs or gallops. ABDOMEN: Bowel sounds present, soft, nontender. EXTREMITIES: The left fifth finger is erythematous and ulcerated at the palmar aspect post debridement. SKIN: No visible rash. NEUROLOGIC: No gross focal findings. PSYCH: The patient cannot cooperate. IMPRESSION 1. Bacteremia due to gram-positive cocci with blood cultures showing bacteremia due to gram-positive cocci with culture showing gram-positive cocci in one bottle of four which is very likely contamination. 2. Abscess and cellulitis of the left fifth finger due to MRSA and group A beta strep. RECOMMENDATIONS 1. Continue vancomycin 2. Monitor the the wound. I think she needs Vancomycin at least 2 more days and then consideration for PO antibiotics. Dontfraid,Francis F MD Mar 17, 2017 12:50
[2017-03-17] MEDS ORDERED: NICOTINE 14 MG/24 HR PATCH T-DERMAL ONE (13:45)
[2017-03-17 14:04] LABS: PHOSPHORUS 2.2 MG/DL (2.5-4.9)
[2017-03-17 14:06] LABS: ALBUMIN 2.9 GM/DL (3.4-5.0); BICARBONATE 23.6 MEQ/L (21.0-32.0); CALCIUM 8.7 MG/DL (8.5-10.1); CREATININE 0.5 MG/DL (0.50-1.00); MAGNESIUM 1.9 MG/DL (1.5-2.5)
--- NOTE | 2017-03-17 15:49 | HHI.PR ---
Subjective Remarks Patient reports pain is controlled. Denies any chest pain or shortness of breath. Denies any nausea or vomiting. Denies constipation. Objective Vital Signs Date Time Temp Pulse Resp B/P (MAP) Pulse Ox O2 Delivery O2 Flow Rate FiO2 03/17/17 12:00 97.8 86 18 123/88 (100) 99 03/17/17 11:16 100 03/17/17 08:00 98.0 82 18 148/87 (107) 100 03/17/17 04:00 98.3 85 17 117/59 (78) 96 03/17/17 03:30 73 03/17/17 00:00 98.2 86 18 143/67 (92) 99 03/16/17 21:00 78 03/16/17 20:00 98.3 88 18 134/85 (101) 98 03/16/17 17:52 18 03/16/17 16:06 97 I/O 03/16/17 03/16/17 03/16/17 03/17/17 03/17/17 03/17/17 07:00 15:00 23:00 07:00 15:00 23:00 Intake Total 490 ml 480 ml Balance 490 ml 480 ml Intake Oral 240 ml 480 ml IV Total 250 ml # Voids 4 5 3 # Bowel Movements 0 0 Result Diagram: 03/17/17 0950 03/17/17 1310 Objective Remarks GENERAL: Patient sitting up in bed. Appears comfortable. Alert and oriented 3. No change on exam today. SKIN: Warm and dry. HEAD: Normocephalic. EYES: No scleral icterus. No injection or drainage. NECK: Supple, trachea midline. No JVD. CARDIOVASCULAR: Regular rate and rhythm without murmurs, gallops, or rubs. RESPIRATORY: Breath sounds equal bilaterally. No accessory muscle use. GASTROINTESTINAL: Abdomen soft, non-tender, nondistended. MUSCULOSKELETAL: No cyanosis, or edema. Left hand dressed. Peripheral perfusion intact. BACK: Nontender without obvious deformity. No CVA tenderness. A/P Assessment and Plan //Severe Sepsis on admission - due to lactic acid 3.0: Temp 99.5, HR 127, Lactic Acid 3.0, Source-Finger Infection MRSA. S/p Blood/Wound Cultures, Vanc/Zosyn. Follow up cultures, continue IV Abx, repeat Lactic Acid. IVF for hydration. = Group A beta strep and staph. Continue IV antibiotics. Follow-up susceptibilities. -ID following. Antibiotics as per infectious disease. Follow-up Final wound susceptibilities = 03/17. Improving. Infectious disease recommends vancomycin for 2 more days then consideration for by mouth antibiotics. //Gram-positive bacteremia. Likely contamination as per infectious disease. Appreciate assistance. // Left Finger Infection: +MRSA - +bruising/blistering/edema, decreased ROM, s/p I&D in ER, follow up cultures. Continue w/ broad spectrum antibiotics, consult Hand for further evaluation, possible surgical intervention. Wound Management as needed. X-ray w/ soft tissue swelling, no acute bony abnormality, images reviewed by me. =Hand surgery continues to follow. Continue broad-spectrum anabiotic. Follow- up cultures sensitivities = 03/17. As above for sepsis. Improving. Infectious disease recommends vancomycin for 2 more days then consideration for by mouth antibiotics. //Alcohol Abuse: Drinks Daily. Alcohol 179. High risk for withdrawal, Seizure Precautions, Ativan, MVT/Thiamine/Folate = No current signs of withdrawal. Continue to monitor = 03/17. Start Librium taper. // Tobacco Abuse: Pt counselled. NicoDerm prn if needed. //hypokalemia. Potassium 3.4. Replaced again. Recheck tomorrow. // DVT Prophylaxis: SCD/Teds. Discharge Planning pending culture results. hand surgery continues to follow. Pending final recommendations. = X disease recommends 2 more days of vancomycin, after which may consider by mouth antibiotics. Ben Blanton MD Mar 17, 2017 15:49
[2017-03-17] MEDS ORDERED: DOCUSATE SODIUM 50 MG/SENNA 8.6 MG TAB PO ONE (16:00)
[2017-03-18] VITALS (8 sets, daily range): BP systolic 116–152; BP diastolic 73–89; PULSE 70–102; RESP 18; TEMP 97.4–98.5; O2SAT 97–99
[2017-03-18] MEDS: ACETAMINOPHEN/HYDROcodone 325 MG/5 MG TAB PO PRN ×5 (01:21→22:04)
[2017-03-18] MEDS: LORazepam 1 MG TAB PO PRN (01:25)
[2017-03-18] MEDS: VANCOMYCIN 1,000 MG/NS 250 ML IV SCH ×2 (01:40)
[2017-03-18] MEDS ORDERED: PHARMACY ORDERED LAB ONE (01:45)
[2017-03-18 02:37] LABS: CREATININE 0.47 MG/DL (0.50-1.00)
[2017-03-18 02:38] LABS: VANCOMYCIN TROUGH 10.2 MCG/ML (5.0-10.0)
[2017-03-18 08:24] LABS: AUTOMATED NEUTROPHIL # 1.7 TH/MM3 (1.8-7.7); BASOPHIL # 0.1 TH/MM3 (0-0.2); BASOPHIL % 1.3 % (0.0-2.0); EOSINOPHIL # 0.1 TH/MM3 (0-0.4); EOSINOPHIL % 1.7 % (0.0-4.0); HEMATOCRIT 26.1 % (35.0-46.0); HEMOGLOBIN 8.5 GM/DL (11.6-15.3); LYMPH % 39.4 % (9.0-44.0); LYMPHOCYTE # 1.5 TH/MM3 (1.0-4.8); MEAN CORPUSCULAR HEMOGLOBIN 28.4 PG (27.0-34.0); MEAN CORPUSCULAR HGB CONC 32.6 % (32.0-36.0); MEAN PLATELET VOLUME 8.2 FL (7.0-11.0); MONO % 13.6 % (0.0-8.0); MONOCYTE # 0.5 TH/MM3 (0-0.9); PLATELET COUNT 178 TH/MM3 (150-450); RED BLOOD COUNT 2.99 MIL/MM3 (4.00-5.30); RED CELL DISTRIBUTION WIDTH 22.2 % (11.6-17.2); WHITE BLOOD COUNT 3.9 TH/MM3 (4.0-11.0)
[2017-03-18] MEDS: REMOVE OLD PATCH T-DERMAL SCH (09:00)
[2017-03-18] MEDS: SODIUM CHLORIDE 0.9% FLUSH 10 ML FLUSH IV FLUSH SCH ×2 (09:00→20:30)
[2017-03-18] MEDS: THIAMINE HCL 100 MG TAB PO SCH (09:17)
[2017-03-18] MEDS: NICOTINE 14 MG/24 HR PATCH T-DERMAL SCH (09:17)
[2017-03-18] MEDS: PANTOPRAZOLE SOD 40 MG DELAYED RELEASE TAB PO SCH ×2 (09:17→20:30)
[2017-03-18] MEDS: DOCUSATE SODIUM 50 MG/SENNA 8.6 MG TAB PO SCH ×2 (09:18→20:30)
[2017-03-18] MEDS: VANCOMYCIN INJ 1,500 MG in SODIUM CHLORID 0.9% 500 ML INJ 500 ML IV SCH ×2 (09:18→16:59)
[2017-03-18] MEDS: FOLIC ACID 1 MG TAB PO SCH (09:18)
[2017-03-18] MEDS: MULTIVITAMINS/MINERALS THERAPEUTIC TAB PO SCH (09:18)
[2017-03-18] MEDS: predniSONE 20 MG TAB PO SCH (09:18)
--- NOTE | 2017-03-18 10:57 | HHI.PR ---
Subjective Remarks no new complaints Objective Vital Signs Date Time Temp Pulse Resp B/P (MAP) Pulse Ox O2 Delivery O2 Flow Rate FiO2 03/18/17 10:01 102 03/18/17 08:05 98.5 89 18 140/89 (106) 99 03/18/17 04:00 70 03/18/17 04:00 97.4 87 18 116/73 (87) 99 03/18/17 00:27 97.9 95 18 98 03/17/17 21:00 98.1 82 18 137/87 (104) 97 03/17/17 20:40 96 21 03/17/17 20:00 90 03/17/17 16:00 109 18 131/80 (97) 95 03/17/17 12:00 97.8 86 18 123/88 (100) 99 03/17/17 11:16 100 I/O 03/17/17 03/17/17 03/17/17 03/18/17 03/18/17 03/18/17 07:00 15:00 23:00 07:00 15:00 23:00 Intake Total 1050 ml Balance 1050 ml IV Total 1050 ml # Voids 3 # Bowel Movements 0 Result Diagram: 03/18/17 0645 03/18/17 0145 Objective Remarks left 5th finger clean, healing; no active infection; dermis all intact, viable ROM intact Assessment and Plan Problem List: (1) Pyoderma gangrenosum ICD Codes: L88 - Pyoderma gangrenosum Plan: wound care left 5th finger with xeroform for now encourage ROM exercises medical treatment for Cholo Gomez III, MD Mar 18, 2017 10:57
[2017-03-18] MEDS ORDERED: predniSONE 20 MG TAB PO ONE (15:45)
--- NOTE | 2017-03-18 15:47 | HHI.PR ---
Subjective Remarks Patient says she is feeling well. Reports pain is controlled. Objective Vital Signs Date Time Temp Pulse Resp B/P (MAP) Pulse Ox O2 Delivery O2 Flow Rate FiO2 03/18/17 13:42 76 03/18/17 12:00 98.0 78 18 148/87 (107) 99 03/18/17 10:01 102 03/18/17 08:05 98.5 89 18 140/89 (106) 99 03/18/17 04:00 70 03/18/17 04:00 97.4 87 18 116/73 (87) 99 03/18/17 00:27 97.9 95 18 98 03/17/17 21:00 98.1 82 18 137/87 (104) 97 03/17/17 20:40 96 21 03/17/17 20:00 90 03/17/17 16:00 109 18 131/80 (97) 95 I/O 03/17/17 03/17/17 03/17/17 03/18/17 03/18/17 03/18/17 07:00 15:00 23:00 07:00 15:00 23:00 Intake Total 1050 ml Balance 1050 ml IV Total 1050 ml # Voids 3 # Bowel Movements 0 Result Diagram: 03/18/17 0645 03/18/17 0145 Objective Remarks GENERAL: Patient sitting up in bed. Appears comfortable. Alert and oriented 3. again, no change on exam today. SKIN: Warm and dry. HEAD: Normocephalic. EYES: No scleral icterus. No injection or drainage. NECK: Supple, trachea midline. No JVD. CARDIOVASCULAR: Regular rate and rhythm without murmurs, gallops, or rubs. RESPIRATORY: Breath sounds equal bilaterally. No accessory muscle use. GASTROINTESTINAL: Abdomen soft, non-tender, nondistended. MUSCULOSKELETAL: No cyanosis, or edema. Left hand dressed. Peripheral perfusion intact. BACK: Nontender without obvious deformity. No CVA tenderness. A/P Assessment and Plan //Severe Sepsis on admission - due to lactic acid 3.0: Temp 99.5, HR 127, Lactic Acid 3.0, Source-Finger Infection MRSA. S/p Blood/Wound Cultures, Vanc/Zosyn. Follow up cultures, continue IV Abx, repeat Lactic Acid. IVF for hydration. = Group A beta strep and staph. Continue IV antibiotics. Follow-up susceptibilities. -ID following. Antibiotics as per infectious disease. Follow-up Final wound susceptibilities = 03/17. Improving. Infectious disease recommends vancomycin for 2 more days then consideration for by mouth antibiotics. = 03/18. Continue IV antibiotics today. Possibly switched to by mouth antibiotics tomorrow. 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 -Discussion with surgeon, who has made diagnosis of pyoderma gangrenosum. Surgery advises against biopsy due to risk of worsening wound, men's medical treatment. = We'll need wound care to follow as outpatient -We'll start prednisone. //Gram-positive bacteremia. Likely contamination as per infectious disease. Appreciate assistance. // Left Finger Infection: +MRSA - +bruising/blistering/edema, decreased ROM, s/p I&D in ER, follow up cultures. Continue w/ broad spectrum antibiotics, consult Hand for further evaluation, possible surgical intervention. Wound Management as needed. X-ray w/ soft tissue swelling, no acute bony abnormality, images reviewed by me. =Hand surgery continues to follow. Continue broad-spectrum anabiotic. Follow- up cultures sensitivities = 03/17. As above for sepsis. Improving. Infectious disease recommends vancomycin for 2 more days then consideration for by mouth antibiotics. =. Continue IV antibiotics. Plan for transition to by mouth tomorrow. //Alcohol Abuse: Drinks Daily. Alcohol 179. High risk for withdrawal, Seizure Precautions, Ativan, MVT/Thiamine/Folate = No current signs of withdrawal. Continue to monitor = 03/17. Start Librium taper. // Tobacco Abuse: Pt counselled. NicoDerm prn if needed. //hypokalemia. Potassium 3.4. Replaced again. Recheck tomorrow. // DVT Prophylaxis: SCD/Teds. Discharge Planning pending culture results. hand surgery continues to follow. Pending final recommendations. = Infectious disease recommends 1 more days of vancomycin, after which may consider by mouth antibiotics. Ben Blanton MD Mar 18, 2017 15:47
--- NOTE | 2017-03-18 17:38 | PD.WOU.CON ---
Patient Intake Chief Complaint Left fifth finger wound. Consult Requested by Dr. Blanton Reason for Consult Woundcare for left 5th finger Primary Care Physician No Primary Care Physician History of Present Illness Consult for woundcare made by Dr. Blanton for treatment of patient's left fifth finger. Patient is in bed quite comfortable and her significant other is at the chair side. According to patient and her significant other the left fifth finger had a little spot one week ago and this intensified so they came to the ED for treatment. Patient is homeless and a poor historian. She has been on the phone with dietary ordering dinner and so much of her history was obtained by her significant other. She denies fevers and chills at this time and appears quite comfortable in bed. Coded Allergies: haloperidol (Unverified Allergy, Severe, 03/14/17) PT DENIES risperidone (Unverified Allergy, Severe, 03/14/17) Vital Signs Date Time Temp Pulse Resp B/P (MAP) Pulse Ox O2 Delivery O2 Flow Rate FiO2 03/18/17 13:42 76 03/18/17 12:00 98.0 78 18 148/87 (107) 99 03/18/17 10:01 102 03/18/17 08:05 98.5 89 18 140/89 (106) 99 03/18/17 04:00 70 03/18/17 04:00 97.4 87 18 116/73 (87) 99 03/18/17 00:27 97.9 95 18 98 03/17/17 21:00 98.1 82 18 137/87 (104) 97 03/17/17 20:40 96 21 03/17/17 20:00 90 Past, Family & Social History Past Medical History HEENT: DENIES HX OF: Cataracts, Glaucoma, Recurrent ear infections, Recurrent sinusitis, Other HEENT history Endocrine: DENIES HX OF: Diabetes mellitus, Graves disease, Hyperthyroidism, Hypothyroidism, Other endocrine history Respiratory: DENIES HX OF: Allergies/hay fever, Asthma, COPD, CPAP use, Sleep apnea, Other respiratory history Cardiovascular: DENIES HX OF: Abdominal aortic aneurysm, Angina, Atrial fibrillation, Cardiac arrhythmias, Coronary artery disease, Deep venous thrombosis, Heart failure, Heart valve disease, Hyperlipidemia, Hypertension, Myocardial infarction, Peripheral vascular dz, Other CV history Gastrointestinal: REPORTS HX OF: Other GI history (gastritis due to etoh), DENIES HX OF: Colitis, GERD, Irritable bowel syndrome, Liver disease, Pancreatitis, Peptic ulcer disease Genitourinary: DENIES HX OF: Chlamydia, Gonorrhea, Hemodialysis, Herpes genitalis, Human papillomavirus, Kidney disease, Kidney failure, Kidney stones, Past UTI, Peritoneal dialysis, Urinary incontinence, Other history Gynecologic: DENIES HX OF: Abnormal pap smear, Chronic pelvic pain, Endometriosis, PID, Polycystic ovarian synd, Recurrent vaginal infxn, Other department supervisor history Musculoskeletal: DENIES HX OF: Fibromyalgia, Fractures, Gout, Osteoarthritis, Osteoporosis, Rheumatoid arthritis, Other musculoskeletal hx Cancer/Hematology: REPORTS HX OF: Anemia, DENIES HX OF: Bladder Cancer, Blood cancer, Brain cancer, Breast cancer, Colorectal cancer, Endocrine cancer, Eye cancer, GI cancer, cancer, Kidney cancer, Leukemia, Liver cancer, Lung cancer , Lymphoma, Musculoskeletal cancer, Neurologic cancer, Oral cancer, Skin cancer , Stomach cancer, Thyroid cancer, Other cancer/hematology Cancer - Female: DENIES HX OF: Cervical cancer, Ovarian cancer, Uterine cancer Infectious Disease: DENIES HX OF: AIDS, Chickenpox, Hepatitis, HIV, Measles, MRSA, Mumps, Polio, Positive PPD, Rheumatic fever, Rubella, Syphilis, Tuberculosis, Vanc-resistant enterococc, Other inf disease history Integumentary: DENIES HX OF: Acne, Eczema, Psoriasis, Other integumentary hx Neurologic: DENIES HX OF: ADHD, Autism, Dementia, Developmental delay, Headaches, Multiple sclerosis, Parkinson disease, Peripheral neuropathy, Restless leg syndrome, Seizures, Stroke, Transient ischemic attack, Other neurologic history Psychiatric: DENIES HX OF: Anorexia nervosa, Anxiety, Bipolar disorder, Bulimia , Depression, Schizophrenia, Other psychiatric history Genetic/Metabolic: DENIES HX OF: Cystic fibrosis, Down syndrome, Other genetic history, Other metabolic history Events: DENIES HX OF: Anaphylaxis, Gunshot wound, Motor vehicle accident, Other events Disabilities: DENIES HX OF: Hearing deficit, Vision deficit, Hemiparesis, Paraplegia, Quadriplegia, Other disabilities Past Surgical History Gynecologic: REPORTS HX OF: Tubal ligation Family Medical History Alcohol abuse G8 FATHER G8 MOTHER G8 BROTHER G8 BROTHER G8 SISTER G8 SISTER G8 SISTER Carcinomas G8 MOTHER ( Stomach Ca) G8 SISTER (Breast Ca) Substance Use Substance Use: Marijuana Emily/Faith Emily Tradition/Faith: yazidism Review of Systems Integumentary: COMPLAINS OF: Slow to heal after cuts Wound Assessment Wound Information - Wound One Finger had already been dressed at the orders of woundcare nurse as well as Hand surgeon. The finger appears to be denuded of skin and red. This is from the fingertip to the base of the finger with sparing of the nail. Wound was cleaned by nurse and redressed with xeroform and gauze john elder. Patient toelrated this well. Wound Location: Left fifth finger Physical Exam General appearance: comfortable Nutritional status: overweight Orientation: alert and oriented x3 Skin: FINDINGS: normal color, lesions (See wound assessment notes), other ( Deformity of lip- per patient ex hus band caused this.) Hair: normal Lab and Radiology Results Radiology Last Impressions Hand X-Ray 03/14/17 0000 Signed Impressions: Service Date/Time: Tuesday, March 14, 2017 16:26 - CONCLUSION: Soft tissue swelling with no underlying bony abnormality. Ramsey Treviño MD Assessment/Plan Problem List: (1) Ulcer of finger Nadya Carr MD Mar 18, 2017 17:38
[2017-03-19] VITALS: BP 140/71; PULSE 100; RESP 20; TEMP 97.3; O2SAT 97
[2017-03-19] MEDS: ACETAMINOPHEN/HYDROcodone 325 MG/5 MG TAB PO PRN ×4 (02:10→15:22)
[2017-03-19] MEDS: VANCOMYCIN INJ 1,500 MG in SODIUM CHLORID 0.9% 500 ML INJ 500 ML IV SCH ×2 (02:16→10:26)
[2017-03-19 05:43] VITALS: BP 155/81; PULSE 75; RESP 18; TEMP 98.5; O2SAT 95
[2017-03-19 08:00] VITALS: BP 144/84; PULSE 75; RESP 16; TEMP 98; O2SAT 100
[2017-03-19] MEDS ORDERED: predniSONE 20 MG TAB PO SCH (09:00)
[2017-03-19] MEDS: REMOVE OLD PATCH T-DERMAL SCH (09:00)
[2017-03-19] MEDS: PANTOPRAZOLE SOD 40 MG DELAYED RELEASE TAB PO SCH (10:26)
[2017-03-19] MEDS: FOLIC ACID 1 MG TAB PO SCH (10:26)
[2017-03-19] MEDS: DOCUSATE SODIUM 50 MG/SENNA 8.6 MG TAB PO SCH (10:26)
[2017-03-19] MEDS: MULTIVITAMINS/MINERALS THERAPEUTIC TAB PO SCH (10:27)
[2017-03-19] MEDS: THIAMINE HCL 100 MG TAB PO SCH (10:27)
[2017-03-19] MEDS: predniSONE 20 MG TAB PO SCH (10:29)
[2017-03-19] MEDS: NICOTINE 14 MG/24 HR PATCH T-DERMAL SCH (10:29)
[2017-03-19] MEDS: SODIUM CHLORIDE 0.9% FLUSH 10 ML FLUSH IV FLUSH SCH (10:31)
[2017-03-19 12:00] VITALS: BP 132/83; PULSE 74; RESP 17; TEMP 98; O2SAT 99
--- NOTE | 2017-03-19 12:50 | HHI.IDPN ---
Note Infectious Disease Note Patient without complaint. Still has pain at the left 5th finger. Afebrile PAST MEDICAL HISTORY 1. Anxiety depression 2. Bipolar disorder 3. Alcohol abuse 4. Tobacco abuse 5. History of tubal ligation. 6. History of hysterectomy. ALLERGIES HALOPERIDOL, RISPERDONE. ANTIBIOTIC: Vancomycin SOCIAL HISTORY The patient smokes a pack of cigarettes a day. Positive daily alcohol use. No illicit drugs. OBJECTIVE: Vital Signs Date Time Temp Pulse Resp B/P (MAP) Pulse Ox O2 Delivery O2 Flow Rate FiO2 03/19/17 08:00 98.0 75 16 144/84 (104) 100 03/19/17 05:43 98.5 75 18 155/81 (105) 95 03/19/17 00:00 97.3 100 20 140/71 (94) 97 03/18/17 20:30 72 03/18/17 20:00 98.1 72 18 152/88 (109) 97 03/18/17 13:42 76 Laboratory Tests Test 03/18/17 06:45 White Blood Count 3.9 TH/MM3 Red Blood Count 2.99 MIL/MM3 Hemoglobin 8.5 GM/DL Hematocrit 26.1 % Mean Corpuscular Volume 87.0 FL Mean Corpuscular Hemoglobin 28.4 PG Mean Corpuscular Hemoglobin Concent 32.6 % Red Cell Distribution Width 22.2 % Platelet Count 178 TH/MM3 Mean Platelet Volume 8.2 FL Neutrophils (%) (Auto) 44.0 % Lymphocytes (%) (Auto) 39.4 % Monocytes (%) (Auto) 13.6 % Eosinophils (%) (Auto) 1.7 % Basophils (%) (Auto) 1.3 % Neutrophils # (Auto) 1.7 TH/MM3 Lymphocytes # (Auto) 1.5 TH/MM3 Monocytes # (Auto) 0.5 TH/MM3 Eosinophils # (Auto) 0.1 TH/MM3 Basophils # (Auto) 0.1 TH/MM3 CBC Comment DIFF FINAL Differential Comment Laboratory Tests Test 03/17/17 13:10 03/18/17 01:45 Blood Urea Nitrogen 6 MG/DL Creatinine 0.50 MG/DL 0.47 MG/DL Random Glucose 140 MG/DL Albumin 2.9 GM/DL Calcium Level 8.7 MG/DL Phosphorus Level 2.2 MG/DL Magnesium Level 1.9 MG/DL Sodium Level 135 MEQ/L Potassium Level 3.8 MEQ/L Chloride Level 101 MEQ/L Carbon Dioxide Level 23.6 MEQ/L Anion Gap 10 MEQ/L Estimat Glomerular Filtration Rate 133 ML/MIN 143 ML/MIN Microbiology Date/Time Source Procedure Growth Status 03/14/17 17:30 Blood Peripheral Aerobic Blood Culture - Preliminary NO GROWTH IN 3 DAYS Resulted 03/14/17 17:30 Anaerobic Blood Culture - Preliminary Gram Positive Cocci Resulted 03/14/17 17:15 Blood Peripheral Aerobic Blood Culture - Preliminary NO GROWTH IN 3 DAYS Resulted 03/14/17 17:15 Blood Peripheral Anaerobic Blood Culture - Preliminary NO GROWTH IN 3 DAYS Resulted 03/15/17 19:07 Wound Finger Fungal Smear - Final NO FUNGAL ELEMENTS SEEN. Resulted 03/15/17 19:07 Wound Finger Fungal Culture Pending Resulted 03/15/17 19:07 Wound Finger Acid Fast Stain - Final NO ACID FAST BACILLI SEEN Resulted 03/15/17 19:07 Wound Finger Mycobacterial Culture Pending Resulted 03/15/17 19:07 Wound Finger Gram Stain - Final Complete 03/15/17 19:07 Wound Culture - Final S. Aureus Mrsa Group A Beta Strep Complete 03/14/17 18:18 Wound Finger Gram Stain - Final Complete 03/14/17 18:18 Wound Culture - Final Group A Beta Strep S. Aureus Mrsa Complete PHYSICAL EXAM GENERAL: No acute distress. HEENT: No icterus. Oropharynx moist mucosa without lesions. NECK: Supple. LUNGS: Clear to auscultation. HEART: Regular S1 and S2 without murmurs, rubs or gallops. ABDOMEN: Bowel sounds present, soft, nontender. EXTREMITIES: The left fifth finger is erythematous and ulcerated, raw circumferential denuded wound. SKIN: No visible rash. NEUROLOGIC: No gross focal findings. PSYCH: calm and cooperative. IMPRESSION 1. Bacteremia due to gram-positive cocci with blood cultures showing bacteremia due to gram-positive cocci with culture showing gram-positive cocci in one bottle of four which is very likely contamination. 2. Abscess and cellulitis of the left fifth finger due to MRSA and group A beta strep. 3. Leukopenia. RECOMMENDATIONS 1. Stop vancomycin 2. Okay to discharge on PO Doxycycline x 10 days. Follow up with wound care. Francis Olson MD Mar 19, 2017 12:50
[2017-03-19] MEDS ORDERED: DOXY100C PO (14:00)
[2017-03-19] MEDS ORDERED: CHLO5CAP4 PO (14:00)
[2017-03-19] MEDS ORDERED: THIA100 PO (14:00)
[2017-03-19] MEDS ORDERED: PRED50 PO (14:04)
[2017-03-19] MEDS ORDERED: NORC5TAB PO (14:07)
--- NOTE | 2017-03-19 14:15 | HHI.DS ---
Discharge Summary Admission Date Mar 14, 2017 at 17:54 Discharge Date: Mar 19, 2017 Admitting Diagnosis Finger infection, Sepsis. (1) Sepsis ICD Code: A41.9 - Sepsis, unspecified organism Status: Acute (2) Finger infection ICD Code: L08.9 - Local infection of the skin and subcutaneous tissue, unspecified (3) Alcohol abuse ICD Code: F10.10 - Alcohol abuse, uncomplicated Status: Chronic (4) Tobacco abuse ICD Code: Z72.0 - Tobacco use Status: Chronic Procedures Patient underwent exploratory surgery on 03/16 by hand surgery. Please see reports. Brief History - From Admission This is a 46-year-old female with a PMH of Anxiety, Depression, Bipolar Disorder , Alcohol Abuse and Tobacco Abuse who presented to the ER with complaints of left 5th finger swelling/pain for approx 3 days. States symptoms have been getting progressively worse, now w/ difficulty moving finger. Pain is severe, 10/10, constant, non-radiating. Denies fever or chills. On arrival, BP 136/93 , HR 127, O2 sat 98% on RA, Temp 99.5. WBC 12.0. Chemistry essentially unremarkable. Lactic Acid 3.0. Alcohol 179. Hand X-ray was soft tissue swelling, no underlying bony abnormality. S/p I&D of left 5th finger in ER. Blood/Wound Cultures, Vanc/Zosyn. CBC/BMP: 03/18/17 0645 03/18/17 0145 Significant Findings Laboratory Tests Test 03/17/17 09:50 03/17/17 13:10 03/18/17 01:45 03/18/17 06:45 Red Blood Count 3.32 MIL/MM3 (4.00-5.30) 2.99 MIL/MM3 (4.00-5.30) Hemoglobin 9.2 GM/DL (11.6-15.3) 8.5 GM/DL (11.6-15.3) Hematocrit 28.7 % (35.0-46.0) 26.1 % (35.0-46.0) Red Cell Distribution Width 22.5 % (11.6-17.2) 22.2 % (11.6-17.2) Platelet Count 132 TH/MM3 (150-450) Monocytes (%) (Auto) 9.8 % (0.0-8.0) 13.6 % (0.0-8.0) Blood Urea Nitrogen 6 MG/DL (7-18) Random Glucose 140 MG/DL (74-106) Albumin 2.9 GM/DL (3.4-5.0) Phosphorus Level 2.2 MG/DL (2.5-4.9) Sodium Level 135 MEQ/L (136-145) Creatinine 0.47 MG/DL (0.50-1.00) Vancomycin Level Trough 10.2 MCG/ML (5.0-10.0) White Blood Count 3.9 TH/MM3 (4.0-11.0) Neutrophils # (Auto) 1.7 TH/MM3 (1.8-7.7) Imaging Last Impressions Hand X-Ray 03/14/17 0000 Signed Impressions: Service Date/Time: Tuesday, March 14, 2017 16:26 - CONCLUSION: Soft tissue swelling with no underlying bony abnormality. Ramsey Treviño MD Hospital Course Patient admitted with suspected sepsis with leukocytosis of 12.0, tachycardia, left second finger wound. Hand x-ray did not show any osteomyelitis. Hand surgery was consulted, patient underwent exploratory surgery and wound culture which grew out MRSA and group A strep. Infectious disease consulted, and patient improved on IV antibiotics.. 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 Patient will need follow- up with wound care as outpatient. Infectious disease recommends doxycycline to complete treatment course.. Patient was also treated for alcohol withdrawal with improvement. She will be sent home on Librium taper, given information for alcohol rehabilitation. Patient is also a smoker, and was strongly advised to quit smoking due to risk for worsening her wound. Patient also has hypokalemia, for which she will continue her chronic potassium replacement. For problem-based summary from most recent progress note, please see below. /Severe Sepsis on admission - due to lactic acid 3.0: Temp 99.5, HR 127, Lactic Acid 3.0, Source-Finger Infection MRSA. S/p Blood/Wound Cultures, Vanc/Zosyn. Follow up cultures, continue IV Abx, repeat Lactic Acid. IVF for hydration. = Group A beta strep and staph. Continue IV antibiotics. Follow-up susceptibilities. -ID following. Antibiotics as per infectious disease. Follow-up Final wound susceptibilities = 03/17. Improving. Infectious disease recommends vancomycin for 2 more days then consideration for by mouth antibiotics. = 03/18. Continue IV antibiotics today. Possibly switched to by mouth antibiotics tomorrow. = Discussed with infectious disease, who has changed patient to by mouth antibiotics. 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 -Discussion with surgeon, who has made diagnosis of pyoderma gangrenosum. Surgery advises against biopsy due to risk of worsening wound, men's medical treatment. = We'll need wound care to follow as outpatient -We'll start prednisone. = 03/19. Continue prednisone. Follow-up with wound care clinic as outpatient for further management. Appreciate Dr. Carr assistance. //Gram-positive bacteremia. Likely contamination as per infectious disease. Appreciate assistance. // Left Finger Infection: +MRSA - +bruising/blistering/edema, decreased ROM, s/p I&D in ER, follow up cultures. Continue w/ broad spectrum antibiotics, consult Hand for further evaluation, possible surgical intervention. Wound Management as needed. X-ray w/ soft tissue swelling, no acute bony abnormality, images reviewed by me. =Hand surgery continues to follow. Continue broad-spectrum anabiotic. Follow- up cultures sensitivities = 03/17. As above for sepsis. Improving. Infectious disease recommends vancomycin for 2 more days then consideration for by mouth antibiotics. =. Transition to by mouth antibiotics. //Alcohol Abuse: Drinks Daily. Alcohol 179. High risk for withdrawal, Seizure Precautions, Ativan, MVT/Thiamine/Folate = No current signs of withdrawal. Continue to monitor = 03/17. Start Librium taper. = 03/19. Patient to be supplied with alcohol rehabilitation information. Librium taper. // Tobacco Abuse: Pt counselled. NicoDerm prn if needed. = Suspect patient to discontinue cigarettes and nicotine completely due to risk for exacerbating her autoimmune condition. //hypokalemia. Continue Home replacement. // DVT Prophylaxis: SCD/Teds. Discharge Planning Doxycycline 10 days to complete treatment course Prednisone for suspected pyoderma gangrenosum. Follow-up with wound care as outpatient Pt Condition on Discharge: Good Discharge Disposition: Discharge Home Discharge Time: > 30 minutes Discharge Instructions DIET: Follow Instructions for: Heart Healthy Diet Activities you can perform: Regular-No Restrictions Other Activity Instructions: Keep wound dressing dry and clean Follow up Referrals: PCP Follow-up - 1 Week with [facility] - 2-3 Days with Nadya Carr MD New Medications: Doxycycline Hyclate (Doxycycline Hyclate) 100 Mg Cap 100 MG PO BID for Infection for 10 Days, #20 CAP 0 Refills Hydrocodone-Acetaminophen ([place]) 5 Mg-325 Mg Tab 1 TAB PO Q4H PRN for PAIN, #20 TAB 0 Refills Prednisone (Prednisone) 50 Mg Tab 50 MG PO DAILY for Pyoderma gangrenosum for 7 Days, #7 TAB 0 Refills Chlordiazepoxide HCl (Chlordiazepoxide HCl) 5 Mg Capsule 5 MG PO TID for Alcohol Detox, #9 CAP Take TWICE daily for 3 days, then ONCE a day for 3 Days. Thiamine HCl (Gnp Vitamin B-1) 100 Mg Tab 100 MG PO DAILY for vitamin, #30 TAB Continued Medications: Pantoprazole (Pantoprazole) 40 Mg Tab 40 MG PO Q12HR for Gastritis for 30 Days, TAB Potassium Chloride ER (Potassium Chloride ER) 20 Meq Tab 20 MEQ PO DAILY for Electrolyte Replacement, #30 TAB 0 Refills Ben Blanton MD Mar 19, 2017 14:15
--- NOTE | 2017-03-19 14:19 | HHI.PR ---
Subjective Remarks Patient says she is feeling all right. Reports pain is under control. Denies any chest pain or shortness of breath. Objective Vital Signs Date Time Temp Pulse Resp B/P (MAP) Pulse Ox O2 Delivery O2 Flow Rate FiO2 03/19/17 12:00 98.0 74 17 132/83 (99) 99 03/19/17 08:00 98.0 75 16 144/84 (104) 100 03/19/17 05:43 98.5 75 18 155/81 (105) 95 03/19/17 00:00 97.3 100 20 140/71 (94) 97 03/18/17 20:30 72 03/18/17 20:00 98.1 72 18 152/88 (109) 97 I/O 03/18/17 03/18/17 03/18/17 03/19/17 03/19/17 03/19/17 07:00 15:00 23:00 07:00 15:00 23:00 Intake Total 1030 ml Output Total 2800 ml Balance 1030 ml -2800 ml IV Total 1030 ml Output Urine Total 2800 ml # Bowel Movements 2 Result Diagram: 03/18/17 0645 03/18/17 0145 Objective Remarks GENERAL: Patient sitting up in bed. Appears comfortable. Alert and oriented 3. again, no change on exam today. SKIN: Warm and dry. HEAD: Normocephalic. EYES: No scleral icterus. No injection or drainage. NECK: Supple, trachea midline. No JVD. CARDIOVASCULAR: Regular rate and rhythm without murmurs, gallops, or rubs. RESPIRATORY: Breath sounds equal bilaterally. No accessory muscle use. GASTROINTESTINAL: Abdomen soft, non-tender, nondistended. MUSCULOSKELETAL: No cyanosis, or edema. Left hand dressed. Peripheral perfusion intact. BACK: Nontender without obvious deformity. No CVA tenderness. A/P Assessment and Plan /Severe Sepsis on admission - due to lactic acid 3.0: Temp 99.5, HR 127, Lactic Acid 3.0, Source-Finger Infection MRSA. S/p Blood/Wound Cultures, Vanc/Zosyn. Follow up cultures, continue IV Abx, repeat Lactic Acid. IVF for hydration. = Group A beta strep and staph. Continue IV antibiotics. Follow-up susceptibilities. -ID following. Antibiotics as per infectious disease. Follow-up Final wound susceptibilities = 1/17. Improving. Infectious disease recommends vancomycin for 2 more days then consideration for by mouth antibiotics. = 03/18. Continue IV antibiotics today. Possibly switched to by mouth antibiotics tomorrow. = Discussed with infectious disease, who has changed patient to by mouth antibiotics. 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 -Discussion with surgeon, who has made diagnosis of pyoderma gangrenosum. Surgery advises against biopsy due to risk of worsening wound, men's medical treatment. = We'll need wound care to follow as outpatient -We'll start prednisone. = 03/19. Continue prednisone. Follow-up with wound care clinic as outpatient for further management. Appreciate Dr. Carr assistance. //Gram-positive bacteremia. Likely contamination as per infectious disease. Appreciate assistance. // Left Finger Infection: +MRSA - +bruising/blistering/edema, decreased ROM, s/p I&D in ER, follow up cultures. Continue w/ broad spectrum antibiotics, consult Hand for further evaluation, possible surgical intervention. Wound Management as needed. X-ray w/ soft tissue swelling, no acute bony abnormality, images reviewed by me. =Hand surgery continues to follow. Continue broad-spectrum anabiotic. Follow- up cultures sensitivities = 03/17. As above for sepsis. Improving. Infectious disease recommends vancomycin for 2 more days then consideration for by mouth antibiotics. =. Transition to by mouth antibiotics. //Alcohol Abuse: Drinks Daily. Alcohol 179. High risk for withdrawal, Seizure Precautions, Ativan, MVT/Thiamine/Folate = No current signs of withdrawal. Continue to monitor = 03/17. Start Librium taper. = 03/19. Patient to be supplied with alcohol rehabilitation information. Librium taper. // Tobacco Abuse: Pt counselled. NicoDerm prn if needed. = Suspect patient to discontinue cigarettes and nicotine completely due to risk for exacerbating her autoimmune condition. //hypokalemia. Continue Home replacement. // DVT Prophylaxis: SCD/Teds. Discharge Planning Doxycycline 10 days to complete treatment course Prednisone for suspected pyoderma gangrenosum. Follow-up with wound care as outpatient Ben Blanton MD Mar 19, 2017 14:19
[2017-03-19 14:58] LABS: AUTOMATED NEUTROPHIL # 6.6 TH/MM3 (1.8-7.7); BASOPHIL % 0.3 % (0.0-2.0); EOSINOPHIL % 0.2 % (0.0-4.0); HEMATOCRIT 30.4 % (35.0-46.0); HEMOGLOBIN 9.8 GM/DL (11.6-15.3); LYMPH % 9.6 % (9.0-44.0); LYMPHOCYTE # 0.7 TH/MM3 (1.0-4.8); MEAN CELL VOLUME 88.3 FL (80.0-100.0); MEAN CORPUSCULAR HEMOGLOBIN 28.4 PG (27.0-34.0); MEAN CORPUSCULAR HGB CONC 32.1 % (32.0-36.0); MEAN PLATELET VOLUME 7.8 FL (7.0-11.0); MONO % 4.8 % (0.0-8.0); MONOCYTE # 0.4 TH/MM3 (0-0.9); NEUT % 85.1 % (16.0-70.0); PLATELET COUNT 238 TH/MM3 (150-450); RED BLOOD COUNT 3.45 MIL/MM3 (4.00-5.30); RED CELL DISTRIBUTION WIDTH 22.5 % (11.6-17.2); WHITE BLOOD COUNT 7.7 TH/MM3 (4.0-11.0)
[2017-03-19 16:18] LABS: BICARBONATE 25.3 MEQ/L (21.0-32.0); CREATININE 0.5 MG/DL (0.50-1.00)
[2017-03-19] MEDS ORDERED: POTA-163 PO (16:45)
[2017-03-19] MEDS ORDERED: POTASSIUM CHLORIDE 10 MEQ CONTROLLED RELEASE TAB PO ONE (16:45)
[2017-03-19 17:18] VITALS: O2SAT 99
[2017-03-20] MEDS ORDERED: PHARMACY ORDERED LAB ONE (01:45)
== END 2017-03-19 17:58 | disposition home or self-care (01) | DRG 872 ==
LOC: NEPD 14:33 → NEDA 17:54 → N05B 20:34
PROVIDERS: ADMIT Internal Medicine; ATTEND Internal Medicine
PROC: 0H9GXZZ Drainage of Left Hand Skin, External Approach (ICD-10-PCS; 2017-03-14)
PROC: 0H9GXZZ Drainage of Left Hand Skin, External Approach (ICD-10-PCS; principal; 2017-03-15 18:39)
DX: A41.9 Sepsis, unspecified organism (principal); F10.239 Alcohol dependence with withdrawal, unspecified; Y90.6 Blood alcohol level of 120-199 mg/100 ml; L02.512 Cutaneous abscess of left hand; L88 Pyoderma gangrenosum; Z59.0 Homelessness; F17.210 Nicotine dependence, cigarettes, uncomplicated; F31.9 Bipolar disorder, unspecified; B95.62 Methicillin resistant Staphylococcus aureus infection as the cause of diseases classified elsewhere; B95.0 Streptococcus, group A, as the cause of diseases classified elsewhere; R65.20 Severe sepsis without septic shock; E87.6 Hypokalemia; E66.3 Overweight; Z68.29 Body mass index [BMI] 29.0-29.9, adult; D64.9 Anemia, unspecified
CPT/HCPCS: 10060; 73130; 80048; 80053; 80069; 80202; 80307; 82565; 83605; 83735; 85025; 86403; 87015; 87040; 87070; 87102; 87116; 87147; 87186; 87205; 87206; 96365; 96375; J0692; J1100; J2060; J2270; J2405; J2543; J3010; J3370; J7030; J7040; J7050; J7512

== ENCOUNTER 2017-07-30 00:22 | Emergency (ER) | payer SELFPAY ==
[~2017-07-30] VITALS: Ht 165.1 cm; Wt 70.0 kg
[~2017-07-30 00:22] MED LIST changes: +CHLO5CAP4 PO; +DOXY100C PO; -FLUD.1 PO; +NORC5TAB PO; -OXYC-392 PO; +PRED50 PO; +THIA100 PO
[2017-07-30 00:26] VITALS: BP 122/80; PULSE 91; RESP 16; TEMP 97.6; O2SAT 99
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
[2017-07-30] MEDS ORDERED: IBUPROFEN 600 MG TAB PO ONE (01:00)
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
[2017-07-30 02:50] VITALS: BP 104/68; PULSE 99; RESP 18; O2SAT 99
[2017-07-30 06:31] VITALS: BP 108/57; PULSE 87; RESP 16; O2SAT 97
[2017-07-30 07:41] VITALS: BP 132/63
== END 2017-07-30 07:45 | disposition home or self-care (01) ==
LOC: NEPE 00:22
DX: S00.83XA Contusion of other part of head, initial encounter (principal); F10.129 Alcohol abuse with intoxication, unspecified; J32.0 Chronic maxillary sinusitis; M54.2 Cervicalgia; D64.9 Anemia, unspecified; F31.9 Bipolar disorder, unspecified; F41.9 Anxiety disorder, unspecified; F17.200 Nicotine dependence, unspecified, uncomplicated; W01.0XXA Fall on same level from slipping, tripping and stumbling without subsequent striking against object, initial encounter
CPT/HCPCS: 70450; 70486; 72125

== ENCOUNTER 2017-09-25 09:30 | Inpatient (IN) ==
[2017-09-25] MEDS ORDERED: Clindamycin 900 mg/NS Premix 900 MG/50 ML PIGGYBACK IV.SIG ONE (09:56)
--- NOTE | 2017-09-25 10:04 | ED ---
HPI General Chief complaint: Skin/Abscess/Foreign Body Stated complaint: Skin Time Seen by Provider: 09/25/17 09:56 Source: patient Mode of arrival: ambulatory Limitations: no limitations History of Present Illness HPI narrative: 47-year-old female patient presents to the ER today because she states that over last 2 weeks she has had skin sores which have been getting worse, especially to her left pinky finger, and feels like her left hand on that side is getting red and swollen and painful. She denies any fevers or any other issues. She has history of MRSA skin infections. She thinks she may have had a spider bite on that area. Patient also reports a 10 out of 10 substernal chest pain which she also states has been going on for about 2 weeks. She reports no shortness of breath, nausea, abdominal pains, or any other symptoms. She does not know of any exacerbating or relieving factors. Patient denies any IV drug use. Related Data Home Medications Medication Instructions Recorded Confirmed No Known Home Medications 09/03/17 09/25/17 Allergies Allergy/AdvReac Type Severity Reaction Status Date / Time haloperidol Allergy Severe UNKNOWN Verified 09/25/17 10:14 risperidone Allergy Severe UNKNOWN Verified 09/25/17 10:14 Review of Systems Except as stated in HPI: all other systems reviewed are negative [facility] Medical History Medical History Left hand pain (Acute) Patient denies medical problems (Acute) Skin infection (Acute) Surgical History Surgical History History of incision and drainage (Acute) History of tubal ligation (Acute) Social History Social History Substance History: No History of Abuse Second Hand Smoke Exposure: Yes Smoking Status: Current every day smoker Tobacco Type: Cigarettes How Often Do You Have a Drink Containing Alcohol: 4 or more times a week Recent Travel in [place] within the Last 8 Weeks: No Recent Out of Country Travel within the Last 8 Weeks: No Immunization History Tetanus Immunization: <5 Years Hx Influenza Vaccine This Season: No Exam Narrative Exam Narrative: GENERAL: Well-developed middle-age female patient currently and mild distress. Awake oriented 3. SKIN: Focused skin assessment warm/dry. There is notable 3 cm ulcerated area with surrounding erythema and dark eschar on the left metacarpal area. Nontender range of motion of the digit, no signs of fusiform edema of the finger. There is also a 3 cm wound to the right forearm with mild surrounding erythema. No underlying fluctuance. HEAD: Atraumatic. Normocephalic. EYES: Pupils equal and round. No scleral icterus. No injection or drainage. ENT: No nasal bleeding or discharge. Mucous membranes pink and moist. NECK: Trachea midline. No JVD. CARDIOVASCULAR: Regular rate and rhythm. No murmur appreciated. RESPIRATORY: No accessory muscle use. Clear to auscultation. Breath sounds equal bilaterally. GASTROINTESTINAL: Abdomen soft, non-tender, nondistended. Hepatic and splenic margins not palpable. MUSCULOSKELETAL: No obvious deformities. No clubbing. No cyanosis. No edema. NEUROLOGICAL: Awake and alert. No obvious cranial nerve deficits. Motor grossly within normal limits. Normal speech. PSYCHIATRIC: Appropriate mood and affect; insight and judgment normal. Course Hospital Course: IV clindamycin was initiated in the ER after cultures were drawn. Lab work shows initial lactate elevation of above 2. Patient has had problems with wounds on this left hand before, had followed up with wound care, has had surgery in that area as well, and I have talked her regarding outpatient therapy versus follow-up of this wound, patient does not think that she can get close follow-up, does not have insurance, is not able to get antibiotics, at this point, it is determined that the patient likely would do better being observed in the hospital with evaluation by hand as well. Case has been discussed with Dr. Ortiz for admission. Initial Documented Vital Signs Temperature 98.2 F 09/25/17 09:35 Pulse Rate 111 H 09/25/17 09:35 Respiratory Rate 16 09/25/17 09:35 Blood Pressure 120/71 09/25/17 09:35 Pulse Oximetry 99 09/25/17 09:35 Last Documented Vital Signs Temperature 98.2 F 09/25/17 09:40 Pulse Rate 87 09/25/17 11:15 Respiratory Rate 16 09/25/17 11:15 Blood Pressure 121/77 09/25/17 11:15 Pulse Oximetry 98 09/25/17 11:15 Medical Decision Making Differential Diagnosis Differential Diagnosis: Cellulitis versus tenosynovitis versus sepsis versus endocarditis Lab Data Result diagrams: 09/25/17 10:00 09/25/17 10:00 Lab Results 09/25/17 09/25/17 09/25/17 Range/Units 10:00 10:00 10:00 WBC 8.2 (4.0-11.0) th/mm3 RBC 3.11 L (4.00-5.30) mil/mm3 Hgb 9.6 L (11.6-15.3) gm/dL Hct 29.1 L (35.0-46.0) % MCV 93.8 (80.0-100.0) fL MCH 31.0 (27.0-34.0) pg MCHC 33.1 (32.0-36.0) % RDW 19.7 H (11.6-17.2) % Plt Count 152 (150-450) th/mm3 MPV 9.4 (7.0-11.0) fL Prelim Diff (Auto) Slide review pending Neut % (Auto) 64.3 (16.0-70.0) % Lymph % (Auto) 17.3 (9.0-44.0) % Thomas % (Auto) 15.1 H (0.0-8.0) % Eos % (Auto) 1.3 (0.0-4.0) % Baso % (Auto) 2.0 (0.0-2.0) % Neut # (Auto) 5.3 (1.8-7.7) th/mm3 Lymph # (Auto) 1.4 (1.0-4.8) th/mm3 Thomas # (Auto) 1.2 H (0.0-0.9) th/mm3 Eos # (Auto) 0.1 (0.0-0.4) th/mm3 Baso # (Auto) 0.2 (0.0-0.2) th/mm3 WBC Differential . Diff Scan Auto diff confirmed Differential Comment . Sodium 133 L (136-145) meq/L Potassium 3.8 (3.5-5.1) meq/L Chloride 99 (98-107) meq/L Carbon Dioxide 23.2 (21.0-32.0) meq/L Anion Gap 11 (5-15) meq/L BUN 4 L (7-18) mg/dL Creatinine 0.58 (0.50-1.00) mg/dL Estimated GFR Greater than 89 (>89) mL/min Random Glucose 89 (74-106) mg/dL Lactic Acid (0.4-2.0) mmol/L Calcium 9.2 (8.5-10.1) mg/dL Troponin I Less than 0.02 L (0.02-0.05) ng/mL 09/25/17 Range/Units 10:10 WBC (4.0-11.0) th/mm3 RBC (4.00-5.30) mil/mm3 Hgb (11.6-15.3) gm/dL Hct (35.0-46.0) % MCV (80.0-100.0) fL MCH (27.0-34.0) pg MCHC (32.0-36.0) % RDW (11.6-17.2) % Plt Count (150-450) th/mm3 MPV (7.0-11.0) fL Prelim Diff (Auto) Neut % (Auto) (16.0-70.0) % Lymph % (Auto) (9.0-44.0) % Thomas % (Auto) (0.0-8.0) % Eos % (Auto) (0.0-4.0) % Baso % (Auto) (0.0-2.0) % Neut # (Auto) (1.8-7.7) th/mm3 Lymph # (Auto) (1.0-4.8) th/mm3 Thomas # (Auto) (0.0-0.9) th/mm3 Eos # (Auto) (0.0-0.4) th/mm3 Baso # (Auto) (0.0-0.2) th/mm3 WBC Differential Diff Scan Differential Comment Sodium (136-145) meq/L Potassium (3.5-5.1) meq/L Chloride (98-107) meq/L Carbon Dioxide (21.0-32.0) meq/L Anion Gap (5-15) meq/L BUN (7-18) mg/dL Creatinine (0.50-1.00) mg/dL Estimated GFR (>89) mL/min Random Glucose (74-106) mg/dL Lactic Acid 2.5 H (0.4-2.0) mmol/L Calcium (8.5-10.1) mg/dL Troponin I (0.02-0.05) ng/mL Imaging Data Radiologist's impression: Chest X-Ray 09/25/17 09:58 CONCLUSION: No acute cardiopulmonary disease. Discharge Plan Discharge Disposition Patient Disposition: 30 Still Patient Discharge Condition Condition: Stable Discharge Details Anticipated Discharge Date: 09/25/17 Diagnosis: Cellulitis of hand, Sepsis Physicians Team ED Provider: Tay Garcia Primary Care Provider: Primary Care Physici,Reny Rxs /Orders / Referrals /Forms Prescriptions: No Action No Known Home Medications RF: 0 Discharge Interventions Interventions: Vital Signs Last Done: 09/25/17 11:15 Status ED Status: With Doctor
[2017-09-25 10:23] LABS: Baso # (Auto) 0.2 th/mm3 (0.0-0.2); Eos # (Auto) 0.1 th/mm3 (0.0-0.4); Eos % (Auto) 1.3 % (0.0-4.0); Hematocrit 29.1 % (35.0-46.0); Hemoglobin 9.6 gm/dL (11.6-15.3); Lymph # (Auto) 1.4 th/mm3 (1.0-4.8); Lymph % (Auto) 17.3 % (9.0-44.0); Mean Corpuscular HGB Conc 33.1 % (32.0-36.0); Mean Corpuscular Volume 93.8 fL (80.0-100.0); Mean Platelet Volume 9.4 fL (7.0-11.0); Mono # (Auto) 1.2 th/mm3 (0.0-0.9); Mono % (Auto) 15.1 % (0.0-8.0); Neut # (Auto) 5.3 th/mm3 (1.8-7.7); Neut % (Auto) 64.3 % (16.0-70.0); Platelet Count 152 th/mm3 (150-450); Red Blood Count 3.11 mil/mm3 (4.00-5.30); Red Cell Distribution Width 19.7 % (11.6-17.2); White Blood Count 8.2 th/mm3 (4.0-11.0)
--- NOTE | 2017-09-25 10:26 | XR ---
EXAM DATE: 09/25/2017 10:20 AM EDT AGE/SEX: 47 years / Female INDICATIONS: Dizziness. CLINICAL DATA: This is the patient's initial encounter. Patient reports that signs and symptoms have been present for 1 month and indicates a pain score of 0/10. MEDICAL/SURGICAL HISTORY: None. None. COMPARISON: [facility] – [place], CHEST SINGLE AP, 11/20/2016. . FINDINGS: The lungs are clear without infiltrate, nodule, or mass. There is no appreciable pleural effusion fo r technique. Heart and mediastinum are unremarkable. CONCLUSION: No acute cardiopulmonary disease. Electronically signed by: Freddie Stewart MD 09/25/2017 10:24 AM EDT
[2017-09-25 10:47] LABS: Anion Gap 11 meq/L (5-15); Blood Urea Nitrogen 4 mg/dL (7-18); Calcium 9.2 mg/dL (8.5-10.1); Carbon Dioxide 23.2 meq/L (21.0-32.0); Chloride 99 meq/L (98-107); Glomerular Filtration Rate Greater Than 89 mL/min (>89); Glucose,Random 89 mg/dL (74-106); Sodium 133 meq/L (136-145)
[2017-09-25 10:48] LABS: Potassium 3.8 meq/L (3.5-5.1)
--- NOTE | 2017-09-25 11:58 | P.HPFP ---
History of Present Illness Primary Care Physician: No Primary Care Physician History of Present Illness: 47 year old female with history of EtOH abuse, gastritis, MRSA abscess /cellulitis, depression, anxiety, and homelessness presenting with progressive pain, erythema, and swelling of her left 5th finger/medial hand. She states she had an infection in this region that required I&D back in March and in the past two weeks the infection has returned. She reports compliance with outpatient antibiotics when she was discharged from the hospital. She thinks she may have gotten a spider bite. She endorses redness, swelling, and pain with movement of her left fifth finger. In the last week the area has been draining a green purulent material. She also reports a scabbed wound on her right forearm and left upper back that she thinks appeared around the same time. She endorses subjective fever and chills and in the past few days has been nauseous with vomiting and diarrhea. She denies abdominal pain, chest pain , shortness of breath, headache, or rash. She complains of chronic dizziness. 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 However, she denies any cat bites or scratches. She has a history of IV heroin use over ten years ago but denies any use since then. She drinks alcohol daily and states she consumes about 12 beers daily. 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 - Diagnosis (1) Cellulitis of hand (2) Sepsis Estimated Total Length of Stay (Days): 2 Plans for Post Hospital Care: Home Review of Systems All other systems reviewed negative except as stated [facility] - History History Provided By: Patient - Medical History Medical History: Medical History (Last Updated 09/25/17 @ 15:21 by Irais Ortiz MD) Anxiety Depression GI bleed Gastritis MRSA cellulitis Skin infection - Surgical History Surgical History: Surgical History (Last Reviewed 09/25/17 @ 12:28 by Irais Ortiz MD) History of incision and drainage History of tubal ligation - Family History Family History: Family History (Last Updated 09/25/17 @ 11:56 by Irais Ortiz MD) Mother Family history of cancer - Tobacco History Second Hand Smoke Exposure: Yes Tobacco Use In Past 30 Days: Yes Smoking Status: Current every day smoker Tobacco Type: Cigarettes Packs Per Day: 1 Years Smoked: 20 - Alcohol History How Often Do You Have a Drink Containing Alcohol: 4 or more times a week ( Drinks three 4-packs of beer daily) - Substance Use History Substance History: No History of Abuse, Past History (History of IV heroin >10 years ago) - Travel History Recent Travel in the [place] Within the Last 8 Weeks: No Recent Travel Out of the Country Within the Last 8 Weeks: No - Immunization History Tetanus Immunization: <5 Years Hx Influenza Vaccine This Season: No Medications and Allergies Active Medications: Active Medications Hydrocodone Bitart/Acetaminophen ([place] 5/325) 1 tab PO Q4H PRN PRN Reason: PAIN SCALE 1 TO 5 Hydrocodone Bitart/Acetaminophen ([place] 7.5/325) 1 tab PO Q4H PRN PRN Reason: PAIN SCALE 6 TO 10 Last Admin: 09/25/17 13:29 Dose: 1 tab Al Hydroxide/Mg Hydroxide (Milk Of Magnesia Liq) 30 ml PO Q12H PRN PRN Reason: Mild Constipation Bisacodyl (Dulcolax Supp) 10 mg RECTAL DAILY PRN PRN Reason: SEVERE CONSITIPATION Enoxaparin Sodium (Lovenox Inj) 40 mg SQ Q24H [facility] Flumazenil (Romazecon Inj) 0.2 mg IV.PUSH Q1M PRN PRN Reason: OVERSEDATION Sodium Chloride (Ns Inj) 1,000 mls @ 100 mls/hr IV.CONT .Q10H [facility] Last Admin: 09/25/17 13:30 Dose: 100 mls/hr Pharmacy Profile Note (Vancomycin Consult Pharmacy) 0 mls @ 0 mls/hr OTHER UNSCH [facility] Vancomycin HCl 1,250 mg/ (Sodium Chloride) 262.5 mls @ 250 mls/hr IV.SIG Q12H [facility] Ketorolac Tromethamine (Toradol Inj) 30 mg IV.PUSH Q6H PRN PRN Reason: BREAKTHROUGH PAIN Stop: 09/30/17 12:59 Lactulose (Lactulose Liq) 30 ml PO DAILY PRN PRN Reason: SEVERE CONSITIPATION Lorazepam (Ativan) 1 mg PO Q4H PRN PRN Reason: for CIWA 8-10 Lorazepam (Ativan) 2 mg PO Q2H PRN PRN Reason: for CIWA 11-14 Lorazepam (Ativan Inj) 2 mg IV.PUSH Q2H PRN PRN Reason: for CIWA 11-14 Lorazepam (Ativan Inj) 2 mg IV.PUSH Q1H PRN PRN Reason: for CIWA 15-20 Lorazepam (Ativan Inj) 2 mg IV.PUSH Q15M PRN PRN Reason: for CIWA > 20 Lorazepam (Ativan Inj) 1 mg IV.PUSH Q4H PRN PRN Reason: for CIWA 8-10 Miscellaneous Information ([facility] Ordered Lab Info) 0 each OTHER ONCE ONE Stop: 09/27/17 01:46 Ondansetron HCl (Zofran Odt) 4 mg PO Q6H PRN PRN Reason: NAUSEA OR VOMITING Senna/Docusate Sodium (Florencia-Colace) 1 tab PO BID RAFI Sennosides (Senokot) 17.2 mg PO Q12H PRN PRN Reason: Moderate Constipation Sodium Chloride (Ns Flush) 2 ml IV.FLUSH BID RAFI Sodium Chloride (Ns Flush) 2 ml IV.FLUSH UNSCH PRN PRN Reason: FLUSH AFTER USING IV ACCESS Temazepam (Restoril) 15 mg PO HS PRN PRN Reason: INSOMNIA Allergies Allergy/AdvReac Type Severity Reaction Status Date / Time haloperidol Allergy Severe UNKNOWN Verified 09/25/17 10:14 risperidone Allergy Severe UNKNOWN Verified 09/25/17 10:14 Home Medications Medication Instructions Recorded Confirmed Type No Known Home Medications 09/03/17 09/25/17 History Exam Vital signs: Vital Signs 09/25/17 09:35 09/25/17 09:40 09/25/17 09:46 Temperature 98.2 F 98.2 F Pulse Rate 111 H 111 H 94 H Respiratory Rate 16 16 16 Blood Pressure 120/71 120/71 119/81 Pulse Oximetry 99 99 99 09/25/17 10:05 09/25/17 11:15 Temperature Pulse Rate 87 Respiratory Rate 16 Blood Pressure 121/77 Pulse Oximetry 99 98 Intake & Output 09/24/17 09/25/17 09/25/17 18:59 06:59 18:59 Intake Total 50 / 50 Balance 50 / 50 Weight 65.771 kg Intake: IV 50 / 50 Cleocin 900 mg/NS Premix 900 mg 50 / 50 In 50 ml @ 100 mls/hr IV.SIG ONCE ONE Rx#:[id number] Narrative: GENERAL: Disheveled, female resting in bed in [facility]. SKIN: Hyperpigmented. 4x1 cm scab over right forearm and 4x3 cm scab left upper back. No surrounding erythema or underlying fluctuance to either wound. On the left hand there is erythema, warmth, and swelling at the base of her 5th digit and along the medial portion of the hand. HEENT: AT/NC. Pupils equal and round. MMM. NECK: Supple no tender LAD or JVD. HEART: RRR no m/r/g. LUNGS: CTAB without wheezes or crackles. ABDOMEN: +BS, soft, NT, ND. EXTREMITIES: No LE edema. 2+ pedal pulses. NEURO: Awake and alert. Nonfocal. PSYCH: Appropriate mood and affect. Results - Labs Result diagrams: 09/25/17 10:00 09/25/17 10:00 Abnormal lab results 09/25/17 09/25/17 09/25/17 Range/Units 10:00 10:00 10:00 RBC 3.11 L (4.00-5.30) mil/mm3 Hgb 9.6 L (11.6-15.3) gm/dL Hct 29.1 L (35.0-46.0) % RDW 19.7 H (11.6-17.2) % [place]ard % (Auto) 15.1 H (0.0-8.0) % [place] # (Auto) 1.2 H (0.0-0.9) th/mm3 Sodium 133 L (136-145) meq/L BUN 4 L (7-18) mg/dL Lactic Acid (0.4-2.0) mmol/L Troponin I Less than 0.02 L (0.02-0.05) ng/mL 09/25/17 Range/Units 10:10 RBC (4.00-5.30) mil/mm3 Hgb (11.6-15.3) gm/dL Hct (35.0-46.0) % RDW (11.6-17.2) % [place] % (Auto) (0.0-8.0) % [place] # (Auto) (0.0-0.9) th/mm3 Sodium (136-145) meq/L BUN (7-18) mg/dL Lactic Acid 2.5 H (0.4-2.0) mmol/L Troponin I (0.02-0.05) ng/mL Short CBC 09/25/17 Range/Units 10:00 WBC 8.2 (4.0-11.0) th/mm3 Hgb 9.6 L (11.6-15.3) gm/dL Hct 29.1 L (35.0-46.0) % Plt Count 152 (150-450) th/mm3 BMP 09/25/17 10:00 Sodium 133 L Potassium 3.8 Chloride 99 Carbon Dioxide 23.2 BUN 4 L Creatinine 0.58 Calcium 9.2 Cardiac Enzymes 09/25/17 Range/Units 10:00 Troponin I Less than 0.02 L (0.02-0.05) ng/mL - Imaging Impressions Chest X-Ray 09/25/17 09:58 CONCLUSION: No acute cardiopulmonary disease. Caprini VTE Risk Assessment Caprini VTE Risk Assessment: Moderate/High Risk (score >= 2) Caprini Risk Assessment Model: Point Value = 1 Point Value = 2 Point Value = 3 Point Value = 5 Age 41-60 Minor surgery BMI > 25 kg/m2 Swollen legs Varicose veins or History of unexplained or recurrent spontaneous Oral contraceptives or hormone replacement Sepsis (< 1 month) Serious lung disease, including pneumonia (< 1 month) Abnormal pulmonary function Acute myocardial infarction Congestive heart failure (< 1 month) History of inflammatory bowel disease Medical patient at bed rest Age 61-74 Arthroscopic surgery Major open surgery (> 45 min) Laparoscopic surgery (> 45 min) Malignancy Confined to bed (> 72 hours) Immobilizing plaster cast Central venous access Age >= 75 History of VTE Family history of VTE Factor V Leiden Prothrombin [id number] Lupus anticoagulant Anticardiolipin antibodies Elevated serum homocysteine Heparin-induced thrombocytopenia Other congenital or acquired thrombophilia Stroke (< 1 month) Elective arthroplasty Hip, pelvis, or leg fracture Acute spinal cord injury (< 1 month) Prophylaxis Regimen: Total Risk Factor Score Risk Level Prophylaxis Regimen 0-1 Low Early ambulation 2 Moderate Order ONE of the following: *Sequential Compression Device (SCD) *Heparin 5000 units SQ BID 3-4 Higher Order ONE of the following medications: *Heparin 5000 units SQ TID *Enoxaparin/Lovenox 40 mg SQ daily (WT < 150 kg, CrCl > 30 mL/min) *Enoxaparin/Lovenox 30 mg SQ daily (WT < 150 kg, CrCl > 10-29 mL/min) *Enoxaparin/Lovenox 30 mg SQ BID (WT < 150 kg, CrCl > 30 mL/min) AND/OR *Sequential Compression Device (SCD) 5 or more Highest Order ONE of the following medications: *Heparin 5000 units SQ TID (Preferred with Epidurals) *Enoxaparin/Lovenox 40 mg SQ daily (WT < 150 kg, CrCl > 30 mL/min) *Enoxaparin/Lovenox 30 mg SQ daily (WT < 150 kg, CrCl > 10-29 mL/min) *Enoxaparin/Lovenox 30 mg SQ BID (WT < 150 kg, CrCl > 30 mL/min) AND *Sequential Compression Device (SCD) Assessment and Plan - Assessment (1) Cellulitis of hand Code(s): L03.119 - Cellulitis of unspecified part of limb Status: Acute (2) Sepsis Code(s): A41.9 - Sepsis, unspecified organism Status: Acute - Assessment and Plan 47 year old female with history of EtOH abuse, gastritis, MRSA abscess /cellulitis, depression, anxiety, and homelessness admitted for recurrent left fifth digit/hand cellulitis. 1. L 5th digit/L medial hand cellulitis - Afebrile and no leukocytosis but patient tachycardic and lactic acid is 2.5 - XR with no signs of bony involvement - Hand surgery consulted - Wound care nurse consulted - IV vancomycin with pharmacy to dose - Wound culture - Blood cultures pending - Repeat lactic acid - [place] and Toradol PRN - Zofran PRN 2. EtOH abuse - Rally pack with [employer], thiamin, folic acid - CIWA protocol - Seizure precautions 3. Gastritis - H/O UGIB December 2016 - Protonix 4. Anemia - Hemoglobin ~9 which is stable since GI bleed in 2017 - Monitor DVT prophylaxis: Lovenox
[2017-09-25] MEDS ORDERED: Bisacodyl 10 MG Supp RECTAL PRN (12:23)
[2017-09-25] MEDS ORDERED: LORazepam 1 MG Tablet PO PRN (12:26)
[2017-09-25] MEDS ORDERED: Ketorolac Inj 30 MG/ML (IVP) Vial IV.PUSH PRN (13:00)
[2017-09-25] MEDS ORDERED: Vancomycin Inj 1,000 MG in Sodium Chlor 0.9% Inj 250 ML IV.SIG SCH (13:00)
[2017-09-25] MEDS ORDERED: Vancomycin Consult Pharmacy 1 EACH OTHER SCH (13:00)
--- NOTE | 2017-09-25 13:06 | XR ---
EXAM DATE: 09/25/2017 1:03 PM EDT AGE/SEX: 47 years / Female INDICATIONS: Left hand swelling and redness on lateral side, CLINICAL DATA: This is the patient's initial encounter. Patient reports that signs and symptoms have been present for 1 day and indicates a pain score of 8/10. MEDICAL/SURGICAL HISTORY: None. None. COMPARISON: No prior exams available for comparison. FINDINGS: No definite fractures, or dislocations are identified. No definite lytic or sclerotic les ion is seen. The joint spaces are well maintained. CONCLUSION: Unremarkable study. Electronically signed by: Freddie Stewart MD 09/25/2017 1:05 PM EDT
[2017-09-25] MEDS: Sod Chloride 0.9% Inj 1,000 ML IV.CONT SCH (13:30)
[2017-09-25] MEDS ORDERED: Folic Acid 1 MG Tablet PO ONE (15:26)
[2017-09-25] MEDS ORDERED: Enoxaparin Inj 40 MG/0.4 ML Syringe SQ SCH (16:00)
[2017-09-25] MEDS: Enoxaparin Inj 40 MG/0.4 ML Syringe SQ SCH (16:42)
[2017-09-25] MEDS: Vancomycin Inj 1,250 MG in Sodium Chlor 0.9% Inj 250 ML IV.SIG SCH (20:26)
[2017-09-25] MEDS: Temazepam 15 MG Capsule PO PRN (21:50)
[2017-09-25] MEDS: Senna/Docusate Sodium 8.6/50 MG Tablet PO SCH (21:51)
[2017-09-26] MEDS: Sod Chloride 0.9% Inj 1,000 ML IV.CONT SCH ×3 (01:14→18:54)
[2017-09-26] MEDS: Vancomycin Inj 1,250 MG in Sodium Chlor 0.9% Inj 250 ML IV.SIG SCH ×2 (02:11→13:43)
[2017-09-26 09:33] LABS: Baso # (Auto) 0.1 th/mm3 (0.0-0.2); Baso % (Auto) 2.1 % (0.0-2.0); Eos # (Auto) 0.2 th/mm3 (0.0-0.4); Eos % (Auto) 3.2 % (0.0-4.0); Hematocrit 28.8 % (35.0-46.0); Hemoglobin 9.2 gm/dL (11.6-15.3); Lymph # (Auto) 1.1 th/mm3 (1.0-4.8); Lymph % (Auto) 22.8 % (9.0-44.0); Mean Corpuscular HGB Conc 32.1 % (32.0-36.0); Mean Corpuscular Hemoglobin 30.5 pg (27.0-34.0); Mean Platelet Volume 9.3 fL (7.0-11.0); Mono # (Auto) 0.8 th/mm3 (0.0-0.9); Mono % (Auto) 15.7 % (0.0-8.0); Neut # (Auto) 2.7 th/mm3 (1.8-7.7); Neut % (Auto) 56.2 % (16.0-70.0); Platelet Count 135 th/mm3 (150-450); Red Blood Count 3.03 mil/mm3 (4.00-5.30); Red Cell Distribution Width 19.9 % (11.6-17.2); White Blood Count 4.8 th/mm3 (4.0-11.0)
[2017-09-26 09:58] LABS: Albumin 2.7 g/dL (3.4-5.0); Anion Gap 8 meq/L (5-15); Aspartate Aminotransferase 48 U/L (15-37); Blood Urea Nitrogen 7 mg/dL (7-18); Calcium 8.9 mg/dL (8.5-10.1); Carbon Dioxide 26.6 meq/L (21.0-32.0); Chloride 102 meq/L (98-107); Glomerular Filtration Rate Greater Than 89 mL/min (>89); Glucose,Random 88 mg/dL (74-106); Sodium 137 meq/L (136-145)
[2017-09-26 10:03] LABS: Alanine Aminotransferase 26 U/L (10-53); Alkaline Phosphatase 97 U/L (45-117); Total Protein 7.1 g/dL (6.4-8.2)
[2017-09-26] MEDS: Folic Acid 1 MG Tablet PO SCH (11:16)
[2017-09-26] MEDS: Senna/Docusate Sodium 8.6/50 MG Tablet PO SCH ×2 (11:17→21:52)
--- NOTE | 2017-09-26 14:04 | P.PN ---
Subjective Interval history: awake and alert no complains of pain admits to chronic alcohol use Physical Exam Vital signs: Vital Signs 09/25/17 20:00 09/26/17 00:00 09/26/17 04:00 Temperature 98.3 F 97.6 F 97.7 F Pulse Rate 94 H 78 64 Respiratory Rate 16 18 18 Blood Pressure 104/60 101/68 112/70 Pulse Oximetry 98 98 98 09/26/17 09:59 09/26/17 12:53 Temperature 98.4 F 98.4 F Pulse Rate 74 69 Respiratory Rate 16 16 Blood Pressure 117/70 102/61 Pulse Oximetry 95 98 Intake & Output 09/25/17 09/26/17 09/26/17 18:59 06:59 18:59 Intake Total 50 / 50 1142.5 / 1142.5 Balance 50 / 50 1142.5 / 1142.5 Weight 65.771 kg 63.6 kg Intake: IV 50 / 50 662.5 / 662.5 NS Inj 1,000 ML @ 100 mls/hr IV 400 / 400 .CONT .Q10H [facility] Rx#:[id number] Cleocin 900 mg/NS Premix 900 mg 50 / 50 In 50 ml @ 100 mls/hr IV.SIG ONCE ONE Rx#:[id number] Vancomycin Inj 1,250 MG In NS 262.5 / 262.5 Inj 250 ML @ 250 mls/hr IV.SIG Q12H [facility] Rx#:[id number] Oral 480 / 480 Other: # Voids 2 Date of Last Bowel Movement 09/25/17 09/25/17 Narrative: awake and alert, no acute ditreesss anicteric lungs- clear regular rhythm adbmen soft, notneder left hand- lateral aspect of the hand- with open wound/superficial that popped mild erythema left wrist with/hand- with mild swelling , decrease in range of motion, tender on movement Results - Labs CBC & Chem 7: 09/26/17 07:57 09/26/17 07:57 Laboratory Results - last 24 hr 09/25/17 09/25/17 09/26/17 10:00 15:05 07:57 WBC RBC Hgb Hct MCV MCH MCHC RDW Plt Count MPV Neut % (Auto) Lymph % (Auto) [place]henry % (Auto) Eos % (Auto) Baso % (Auto) Neut # (Auto) Lymph # (Auto) [place]hen[place] # (Auto) Eos # (Auto) Baso # (Auto) WBC Differential Differential Comment Sodium 137 Potassium 3.0 L D Chloride 102 Carbon Dioxide 26.6 Anion Gap 8 BUN 7 Creatinine 0.59 Estimated GFR Greater than 89 Random Glucose 88 Lactic Acid 1.3 Calcium 8.9 Total Bilirubin 0.5 AST 48 H ALT 26 Alkaline Phosphatase 97 Total Protein 7.1 Albumin 2.7 L Serum Alcohol 144 H 09/26/17 07:57 WBC 4.8 RBC 3.03 L Hgb 9.2 L Hct 28.8 L MCV 95.0 MCH 30.5 MCHC 32.1 RDW 19.9 H Plt Count 135 L MPV 9.3 Neut % (Auto) 56.2 Lymph % (Auto) 22.8 [place] % (Auto) 15.7 H Eos % (Auto) 3.2 Baso % (Auto) 2.1 H Neut # (Auto) 2.7 Lymph # (Auto) 1.1 [place] # (Auto) 0.8 Eos # (Auto) 0.2 Baso # (Auto) 0.1 WBC Differential . Differential Comment Auto diff final Sodium Potassium Chloride Carbon Dioxide Anion Gap BUN Creatinine Estimated GFR Random Glucose Lactic Acid Calcium Total Bilirubin AST ALT Alkaline Phosphatase Total Protein Albumin Serum Alcohol Microbiology 09/25/17 10:00 Blood - Peripheral Aerobic Blood Culture - Preliminary No growth in 1 day 09/25/17 10:00 Blood - Peripheral Anaerobic Blood Culture - Preliminary No growth in 1 day 09/25/17 10:05 Blood - Peripheral Aerobic Blood Culture - Preliminary No growth in 1 day 09/25/17 10:05 Blood - Peripheral Anaerobic Blood Culture - Preliminary No growth in 1 day Assessment and Plan - Assessment (1) Cellulitis of hand Code(s): L03.119 - Cellulitis of unspecified part of limb Status: Acute (2) Sepsis Code(s): A41.9 - Sepsis, unspecified organism Status: Acute - Plan 47 year old right handed female with history of EtOH abuse, gastritis , MRSA abscess/cellulitis, depression, anxiety, and homelessness admitted for recurrent left fifth digit/hand cellulitis. 1. Right hand cellulitis with open wound lateral aspect of the hand with denuded skin- possilby an abscess that popped already - Afebrile and no leukocytosis but patient tachycardic and lactic acid is 2.5 on admission - XR with no signs of bony involvement. get an MRI- to [facility] for deeper involvement - Hand surgery consulted- - Wound care nurse consulted - IV vancomycin with pharmacy to dose - Wound culture - Blood cultures pending - Repeat lactic acid - [place] and Toradol PRN - Zofran PRN 2. EtOH abuse - Rally pack with [employer], thiamin, folic acid - [facility] protocol - Seizure precautions 3. Gastritis - H/O UGIB December 2016 - Protonix 4. Anemia - Hemoglobin ~9 which is stable since GI bleed in 2017 - Monitor 5. Hypokalemia- replace IV and po recheck in am DVT prophylaxis: Lovenox
--- NOTE | 2017-09-26 14:37 | ECG ---
Date Performed: 09/25/2017 Time Performed: 10:18:41 PTAGE: 47 years EKG: Sinus rhythm NORMAL ECG Since previous tracing, no significant change noted NO PREVIOUS TRACING DOCTOR: Mohinder Solares Interpretating Date/Time 09/26/2017 14:34:49
--- NOTE | 2017-09-26 14:45 | P.CON ---
History of Present Illness Primary Care Provider: No Primary Care Physician History of Present Illness: Hand surgery 47 year old female with history of EtOH abuse, gastritis, MRSA abscess /cellulitis, depression, anxiety, and homelessness presenting with progressive pain, erythema, and swelling of her left 5th finger/medial hand. She states she had an infection in this region that required I&D back in March and in the past two weeks the infection has returned. She reports compliance with outpatient antibiotics when she was discharged from the hospital. She thinks she may have gotten a spider bite. She endorses redness, swelling, and pain with movement of her left fifth finger. In the last week the area has been draining a green purulent material. She also reports a scabbed wound on her right forearm and left upper back that she thinks appeared around the same time. She endorses subjective fever and chills and in the past few days has been nauseous with vomiting and diarrhea. She denies abdominal pain, chest pain , shortness of breath, headache, or rash. She complains of chronic dizziness. 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 However, she denies any cat bites or scratches. She has a history of IV heroin use over ten years ago but denies any use since then. She drinks alcohol daily and states she consumes about 12 beers daily. 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 Except as noted in the HPI review of systems negative to presenting complaint Family history noncontributory to presenting complaint Medication list reviewed - History History Provided By: Patient - Medical History Medical History: Medical History (Last Updated 09/25/17 @ 15:21 by Irais Ortiz MD) Anxiety Depression GI bleed Gastritis MRSA cellulitis Skin infection - Surgical History Surgical History: Surgical History (Last Reviewed 09/25/17 @ 12:28 by Irais Ortiz MD) History of incision and drainage History of tubal ligation - Family History Family History: Family History (Last Updated 09/25/17 @ 11:56 by Irais Ortiz MD) Mother Family history of cancer - Tobacco History Second Hand Smoke Exposure: Yes Tobacco Use In Past 30 Days: Yes Smoking Status: Current every day smoker Tobacco Type: Cigarettes Packs Per Day: 1 Years Smoked: 20 - Alcohol History How Often Do You Have a Drink Containing Alcohol: 4 or more times a week ( Drinks three 4-packs of beer daily) - Substance Use History Substance History: No History of Abuse, Past History (History of IV heroin >10 years ago) [facility], LAT[facility] - History History Provided By: Patient - Medical History Medical History: Medical History (Last Reviewed 09/26/17 @ 11:07 by Kristie Avina) Anxiety Depression GI bleed Gastritis MRSA cellulitis Skin infection - Surgical History Surgical History: Surgical History (Last Reviewed 09/26/17 @ 11:07 by Kristie Avina) History of incision and drainage History of tubal ligation - Family History Family History: Family History (Last Reviewed 09/26/17 @ 11:07 by Kristie Avina) Mother Family history of cancer - Tobacco History Second Hand Smoke Exposure: Yes Tobacco Use In Past 30 Days: Yes Smoking Status: Current every day smoker Tobacco Type: Cigarettes Packs Per Day: 1 Years Smoked: 20 - Alcohol History How Often Do You Have a Drink Containing Alcohol: 4 or more times a week ( Drinks three 4-packs of beer daily) - Substance Use History Substance History: No History of Abuse, Past History (History of IV heroin >10 years ago) - Travel History Recent Travel in the [facility] Within the Last 8 Weeks: No Recent Travel Out of the Country Within the Last 8 Weeks: No - Immunization History Tetanus Immunization: <5 Years Hx Influenza Vaccine This Season: No Medications and Allergies Active Medications: Active Medications Hydrocodone Bitart/Acetaminophen ([place] 5/325) 1 tab PO Q4H PRN PRN Reason: PAIN SCALE 1 TO 5 Hydrocodone Bitart/Acetaminophen ([place] 7.5/325) 1 tab PO Q4H PRN PRN Reason: PAIN SCALE 6 TO 10 Last Admin: 09/26/17 11:17 Dose: 1 tab Al Hydroxide/Mg Hydroxide (Milk Of Magndontae Liq) 30 ml PO Q12H PRN PRN Reason: Mild Constipation Bisacodyl (Dulcolax Supp) 10 mg RECTAL DAILY PRN PRN Reason: SEVERE CONSITIPATION Enoxaparin Sodium (Lovenox Inj) 40 mg SQ Q24H [facility] Last Admin: 09/25/17 16:42 Dose: 40 mg Flumazenil (Romazecon Inj) 0.2 mg IV.PUSH Q1M PRN PRN Reason: OVERSEDATION Folic Acid (Folic Acid) 1 mg PO DAILY [facility] Last Admin: 09/26/17 11:16 Dose: 1 mg Sodium Chloride (Ns Inj) 1,000 mls @ 100 mls/hr IV.CONT .Q10H [facility] Last Admin: 09/26/17 11:18 Dose: Not Given Pharmacy Profile Note (Vancomycin Consult Pharmacy) 0 mls @ 0 mls/hr OTHER UNSCH [facility] Vancomycin HCl 1,250 mg/ (Sodium Chloride) 262.5 mls @ 250 mls/hr IV.SIG Q12H [facility] Last Admin: 09/26/17 13:43 Dose: 250 mls/hr Ketorolac Tromethamine (Toradol Inj) 30 mg IV.PUSH Q6H PRN PRN Reason: BREAKTHROUGH PAIN Stop: 09/30/17 12:59 Lactulose (Lactulose Liq) 30 ml PO DAILY PRN PRN Reason: SEVERE CONSITIPATION Lorazepam (Ativan) 1 mg PO Q4H PRN PRN Reason: for CIWA 8-10 Last Admin: 09/25/17 21:51 Dose: 1 mg Lorazepam (Ativan) 2 mg PO Q2H PRN PRN Reason: for CIWA 11-14 Lorazepam (Ativan Inj) 2 mg IV.PUSH Q2H PRN PRN Reason: for CIWA 11-14 Lorazepam (Ativan Inj) 2 mg IV.PUSH Q1H PRN PRN Reason: for CIWA 15-20 Lorazepam (Ativan Inj) 2 mg IV.PUSH Q15M PRN PRN Reason: for CIWA > 20 Lorazepam (Ativan Inj) 1 mg IV.PUSH Q4H PRN PRN Reason: for CIWA 8-10 Miscellaneous Information ([facility] Ordered Lab Info) 0 each OTHER ONCE ONE Stop: 09/27/17 01:46 Multivitamins (Theragran) 1 tab PO DAILY [facility] Last Admin: 09/26/17 11:16 Dose: 1 tab Ondansetron HCl (Zofran Odt) 4 mg PO Q6H PRN PRN Reason: NAUSEA OR VOMITING Pantoprazole Sodium (Protonix) 40 mg PO DAILY [facility] Last Admin: 09/26/17 11:15 Dose: 40 mg Senna/Docusate Sodium (Florencia-Colace) 1 tab PO BID [facility] Last Admin: 09/26/17 11:17 Dose: 1 tab Sennosides (Senokot) 17.2 mg PO Q12H PRN PRN Reason: Moderate Constipation Sodium Chloride (Ns Flush) 2 ml IV.FLUSH BID [facility] Last Admin: 09/26/17 11:16 Dose: Not Given Sodium Chloride (Ns Flush) 2 ml IV.FLUSH UNSCH PRN PRN Reason: FLUSH AFTER USING IV ACCESS Temazepam (Restoril) 15 mg PO HS PRN PRN Reason: INSOMNIA Last Admin: 09/25/17 21:50 Dose: 15 mg Thiamine HCl (Vitamin B1) 100 mg PO BID [facility] Last Admin: 09/26/17 11:15 Dose: 100 mg Allergies Allergy/AdvReac Type Severity Reaction Status Date / Time haloperidol Allergy Severe UNKNOWN Verified 09/25/17 10:14 risperidone Allergy Severe UNKNOWN Verified 09/25/17 10:14 Home Medications Medication Instructions Recorded Confirmed Type No Known Home Medications 09/03/17 09/25/17 History Physical Exam Vital signs: Vital Signs 09/25/17 20:00 09/26/17 00:00 09/26/17 04:00 Temperature 98.3 F 97.6 F 97.7 F Pulse Rate 94 H 78 64 Respiratory Rate 16 18 18 Blood Pressure 104/60 101/68 112/70 Pulse Oximetry 98 98 98 09/26/17 09:59 09/26/17 12:53 Temperature 98.4 F 98.4 F Pulse Rate 74 69 Respiratory Rate 16 16 Blood Pressure 117/70 102/61 Pulse Oximetry 95 98 Intake & Output 09/25/17 09/26/17 09/26/17 18:59 06:59 18:59 Intake Total 50 / 50 1142.5 / 1142.5 Balance 50 / 50 1142.5 / 1142.5 Weight 65.771 kg 63.6 kg Intake: IV 50 / 50 662.5 / 662.5 NS Inj 1,000 ML @ 100 mls/hr IV 400 / 400 .CONT .Q10H [facility] Rx#:[id number] Cleocin 900 mg/NS Premix 900 mg 50 / 50 In 50 ml @ 100 mls/hr IV.SIG ONCE ONE Rx#:[id number] Vancomycin Inj 1,250 MG In NS 262.5 / 262.5 Inj 250 ML @ 250 mls/hr IV.SIG Q12H [facility] Rx#:[id number] Oral 480 / 480 Other: # Voids 2 Date of Last Bowel Movement 09/25/17 09/25/17 Narrative: No apparent anxiety moist mucous membranes PERRLA skin without rash respirations nonlabored moves all 4 extremities to command digits warm well perfused Left ulnar hand with sanguinous crusting No fluctuance or discharge expressible Mild surrounding erythema Mild tenderness to palpation Right dorsal forearm with several centimeter by 1 cm sanguinous plaque No surrounding erythema No drainable collections Full active range of motion Sensation intact light touch distally Assessment and Plan - Assessment (1) Cellulitis of hand Code(s): L03.119 - Cellulitis of unspecified part of limb Status: Acute - Plan 47-year-old female with left hand cellulitis in setting of chronic wound Do not appreciate undrained collection Agree with IV antibiotics for cellulitis Please call with questions
[2017-09-26] MEDS: Enoxaparin Inj 40 MG/0.4 ML Syringe SQ SCH (15:02)
[2017-09-26] MEDS ORDERED: Gadobutrol PF 7.5 MMOL/7.5 ML Vial (for RAD) IV.SIG ONE (17:51)
--- NOTE | 2017-09-26 20:32 | MR ---
EXAM DATE: 09/26/2017 6:49 PM EDT AGE/SEX: 47 years / Female INDICATIONS: Osteomyelitis. Large wound lateral fifth metacarpal. CLINICAL DATA: This is the patient's initial encounter. Patient reports that signs and symptoms have been present for 3 weeks and indicates a pain score of 4/10. MEDICAL/SURGICAL HISTORY: None. Tubal ligation. COMPARISON: No prior exams available for comparison. TECHNIQUE: Multiplanar, multisequence MRI examination was performed without contrast and after the i ntravenous administration of 6 ml Gadavist (gadobutrol) contrast as a single exam dose. FINDINGS: There is a large amount of edema in the soft tissues underneath the wound just lateral to the fifth m etacarpal without deep space abscess. Marrow in the metacarpals and proximal phalanges appear hematom a homogeneous. Marrow signal carpus and distal radius and ulna appear homogeneous. I do not see evide nce for deep space abscess last myelitis. CONCLUSION: 1. I do not see evidence for rest myelitis or deep space abscess beneath the large wound lateral to the fifth metacarpal. Electronically signed by: Jl Santos MD 09/26/2017 8:31 PM EDT
[2017-09-26] MEDS: Temazepam 15 MG Capsule PO PRN (21:52)
[2017-09-27] MEDS ORDERED: Pharmacy Ordered Lab Info OTHER ONE (01:45)
[2017-09-27] MEDS: Vancomycin Inj 1,250 MG in Sodium Chlor 0.9% Inj 250 ML IV.SIG SCH ×2 (03:21→14:53)
[2017-09-27] MEDS: Sod Chloride 0.9% Inj 1,000 ML IV.CONT SCH (05:50)
--- NOTE | 2017-09-27 09:05 | P.PN ---
Subjective Interval history: awake and alert, no pain complains good po Physical Exam Vital signs: Vital Signs 09/26/17 09:59 09/26/17 12:53 09/26/17 20:00 Temperature 98.4 F 98.4 F 98.5 F Pulse Rate 74 69 68 Respiratory Rate 16 16 20 Blood Pressure 117/70 102/61 134/73 Pulse Oximetry 95 98 97 09/27/17 00:00 09/27/17 04:00 Temperature 97.2 F L 97 F L Pulse Rate 67 75 Respiratory Rate 20 20 Blood Pressure 102/61 119/83 Pulse Oximetry 98 99 Intake & Output 09/26/17 09/27/17 09/27/17 18:59 06:59 18:59 Intake Total 862.5 / 862.5 1180 / 1180 Balance 862.5 / 862.5 1180 / 1180 Intake: IV 862.5 / 862.5 500 / 500 NS Inj 1,000 ML @ 100 mls/hr IV 600 / 600 500 / 500 .CONT .Q10H [facility] Rx#:[id number] Vancomycin Inj 1,250 MG In NS 262.5 / 262.5 Inj 250 ML @ 250 mls/hr IV.SIG Q12H [facility] Rx#:[id number] Oral 680 / 680 Other: # Voids 1 Date of Last Bowel Movement 09/25/17 # Bowel Movements 1 Narrative: awake and alert, no acute distress anicteric lungs- clear regular rhythm abdomen soft, notneder left hand- lateral aspect of the hand- with open wound/superficial that , no surrounding erythema, dry left wrist with/hand- decrease swelling- better range of motion Results - Labs CBC & Chem 7: 09/26/17 07:57 09/27/17 08:10 Laboratory Results - last 24 hr 09/26/17 09/26/17 09/27/17 07:57 07:57 03:31 WBC 4.8 RBC 3.03 L Hgb 9.2 L Hct 28.8 L MCV 95.0 MCH 30.5 MCHC 32.1 RDW 19.9 H Plt Count 135 L MPV 9.3 Neut % (Auto) 56.2 Lymph % (Auto) 22.8 [place] % (Auto) 15.7 H Eos % (Auto) 3.2 Baso % (Auto) 2.1 H Neut # (Auto) 2.7 Lymph # (Auto) 1.1 [place] # (Auto) 0.8 Eos # (Auto) 0.2 Baso # (Auto) 0.1 WBC Differential . Differential Comment Auto diff final Sodium 137 Potassium 3.0 L D Chloride 102 Carbon Dioxide 26.6 Anion Gap 8 BUN 7 Creatinine 0.59 Estimated GFR Greater than 89 Random Glucose 88 Calcium 8.9 Total Bilirubin 0.5 AST 48 H ALT 26 Alkaline Phosphatase 97 Total Protein 7.1 Albumin 2.7 L Vancomycin Trough 9.7 Microbiology 09/25/17 10:00 Blood - Peripheral Aerobic Blood Culture - Preliminary No growth in 1 day 09/25/17 10:00 Blood - Peripheral Anaerobic Blood Culture - Preliminary No growth in 1 day 09/25/17 10:05 Blood - Peripheral Aerobic Blood Culture - Preliminary No growth in 1 day 09/25/17 10:05 Blood - Peripheral Anaerobic Blood Culture - Preliminary No growth in 1 day - Imaging Impressions Hand MRI 09/26/17 00:00 CONCLUSION: 1. I do not see evidence for rest myelitis or deep space abscess beneath the large wound lateral to the fifth metacarpal. Assessment and Plan - Assessment (1) Cellulitis of hand Code(s): L03.119 - Cellulitis of unspecified part of limb Status: Acute (2) Sepsis Code(s): A41.9 - Sepsis, unspecified organism Status: Acute - Plan 47 year old right handed female with history of EtOH abuse, gastritis , MRSA abscess/cellulitis, depression, anxiety, and homelessness admitted for recurrent left fifth digit/hand cellulitis. 1. Right hand cellulitis with open wound lateral aspect of the hand with denuded skin- possilby an abscess that popped already - Afebrile and no leukocytosis but patient tachycardic and lactic acid is 2.5 on admission - XR with no signs of bony involvement. MRI of the hand negative for any OM or deep tissue infection - Hand surgery consulted- - appreiated. antibiotics + wound care - Wound care nurse consulted - IV vancomycin with pharmacy to dose - Wound culture- negative - Blood cultures pending- negative so far - [place] and Toradol PRN - Zofran PRN 2. EtOH abuse - Rally pack with MTV, thiamin, folic acid - [facility] protocol - Seizure precautions - counselled extensively- - [facility] referral - consutled 3. Gastritis- good po - H/O UGIB December 2016 - Protonix 4. Anemia - PPI - Hemoglobin ~9 which is stable since GI bleed in 2017 - Monitor 5. Hypokalemia- replaced IV and po- - give 40 meq po x 1 today if low recjheck in am DVT prophylaxis: Lovenox PT consult- up and ambulate- assess gait
[2017-09-27] MEDS: Folic Acid 1 MG Tablet PO SCH (09:11)
[2017-09-27] MEDS: Senna/Docusate Sodium 8.6/50 MG Tablet PO SCH ×2 (09:11→22:25)
[2017-09-27 10:05] LABS: Albumin 2.8 g/dL (3.4-5.0); Anion Gap 10 meq/L (5-15); Aspartate Aminotransferase 60 U/L (15-37); Blood Urea Nitrogen 4 mg/dL (7-18); Calcium 9.2 mg/dL (8.5-10.1); Carbon Dioxide 24.9 meq/L (21.0-32.0); Chloride 104 meq/L (98-107); Glomerular Filtration Rate Greater Than 89 mL/min (>89); Glucose,Random 90 mg/dL (74-106); Magnesium 2.2 mg/dL (1.5-2.5); Potassium 3.2 meq/L (3.5-5.1); Sodium 139 meq/L (136-145)
[2017-09-27 10:07] LABS: Alanine Aminotransferase 27 U/L (10-53)
[2017-09-27 10:09] LABS: Alkaline Phosphatase 101 U/L (45-117); Total Protein 7.1 g/dL (6.4-8.2)
[2017-09-27] MEDS: Enoxaparin Inj 40 MG/0.4 ML Syringe SQ SCH (17:22)
[2017-09-27] MEDS: Temazepam 15 MG Capsule PO PRN (22:28)
[2017-09-28] MEDS: Vancomycin Inj 1,250 MG in Sodium Chlor 0.9% Inj 250 ML IV.SIG SCH ×2 (02:50→15:33)
[2017-09-28] MEDS: Folic Acid 1 MG Tablet PO SCH (08:54)
[2017-09-28] MEDS: Senna/Docusate Sodium 8.6/50 MG Tablet PO SCH ×2 (08:54→21:32)
[2017-09-28 10:54] LABS: Anion Gap 6 meq/L (5-15); Blood Urea Nitrogen 5 mg/dL (7-18); Calcium 9.2 mg/dL (8.5-10.1); Carbon Dioxide 25.7 meq/L (21.0-32.0); Chloride 104 meq/L (98-107); Glomerular Filtration Rate Greater Than 89 mL/min (>89); Glucose,Random 92 mg/dL (74-106); Sodium 136 meq/L (136-145)
[2017-09-28 10:58] LABS: Potassium 4.7 meq/L (3.5-5.1)
--- NOTE | 2017-09-28 11:03 | P.PN ---
Physical Exam Vital signs: Vital Signs 09/27/17 12:00 09/27/17 16:00 09/27/17 20:00 Temperature 97.4 F L 99 F 98 F Pulse Rate 67 70 64 Respiratory Rate 20 20 20 Blood Pressure 124/76 131/82 142/88 H Pulse Oximetry 100 100 99 09/28/17 00:00 09/28/17 04:00 09/28/17 08:00 Temperature 98 F 98 F 97.9 F Pulse Rate 68 63 58 L Respiratory Rate 18 20 20 Blood Pressure 108/60 122/69 143/81 H Pulse Oximetry 98 98 98 Intake & Output 09/27/17 09/28/17 09/28/17 18:59 06:59 18:59 Intake Total 1022.5 / 1022.5 260 / 260 Balance 1022.5 / 1022.5 260 / 260 Weight 67.4 kg Intake: IV 1022.5 / 1022.5 260 / 260 NS Inj 1,000 ML @ 100 mls/hr IV 500 / 500 .CONT .Q10H [facility] Rx#:[id number] Vancomycin Inj 1,250 MG In NS 522.5 / 522.5 260 / 260 Inj 250 ML @ 250 mls/hr IV.SIG Q12H [facility] Rx#:[id number] Other: # Voids 3 4 1 Date of Last Bowel Movement 09/25/17 Narrative: Subjective Interval history: Afebrile No events overnight No complaints at this time. Physical Exam GENERAL: 47 yo male, awake and alert doesn't appear in acute distress CARDIOVASCULAR: Regular rate and rhythm without murmurs, gallops, or rubs. RESPIRATORY: Breath sounds equal bilaterally. No accessory muscle use. GASTROINTESTINAL: Abdomen soft, non-tender, nondistended. MUSCULOSKELETAL: left hand- lateral aspect of the hand- with open wound/ superficial that , no surrounding erythema, dry. Left wrist with/hand- decrease swelling- better range of motion. BACK: Nontender without obvious deformity. No CVA tenderness. Assessment and Plan 47 year old right handed female with history of EtOH abuse, gastritis , MRSA abscess/cellulitis, depression, anxiety, and homelessness admitted for recurrent left fifth digit/hand cellulitis. Right hand cellulitis with open wound lateral aspect of the hand with denuded skin- possibly an abscess that popped already - Afebrile and no leukocytosis but patient tachycardic and lactic acid is 2.5 on admission - XR with no signs of bony involvement. MRI of the hand negative for any OM or deep tissue infection - Hand surgery consulted- - appreiated. antibiotics + wound care - Wound care nurse consulted - IV vancomycin with pharmacy to dose - Wound culture- negative - Blood cultures pending- negative so far - [facility] and Toradol PRN - Zofran PRN EtOH abuse - Rally pack with MTV, thiamin, folic acid - [facility] protocol - Seizure precautions - counselled extensively- - [facility] referral - consutled Gastritis- good po - H/O UGIB December 2016 - Protonix Anemia - PPI - Hemoglobin ~9 which is stable since GI bleed in 2017 - Monitor Hypokalemia- replaced IV and po- - give 40 meq po x 1 today if low recheck in am DVT prophylaxis: Lovenox PT consult- up and ambulate- assess gait Results - Labs CBC & Chem 7: 09/26/17 07:57 09/28/17 09:28 Microbiology 09/25/17 10:00 Blood - Peripheral Aerobic Blood Culture - Preliminary No growth in 2 days 09/25/17 10:00 Blood - Peripheral Anaerobic Blood Culture - Preliminary No growth in 2 days 09/25/17 10:05 Blood - Peripheral Aerobic Blood Culture - Preliminary No growth in 2 days 09/25/17 10:05 Blood - Peripheral Anaerobic Blood Culture - Preliminary No growth in 2 days Assessment and Plan - Assessment (1) Cellulitis of hand Code(s): L03.119 - Cellulitis of unspecified part of limb Status: Acute (2) Sepsis Code(s): A41.9 - Sepsis, unspecified organism Status: Acute
[2017-09-28] MEDS: Enoxaparin Inj 40 MG/0.4 ML Syringe SQ SCH (15:33)
[2017-09-28] MEDS: Temazepam 15 MG Capsule PO PRN (21:33)
[2017-09-29] MEDS ORDERED: Pharmacy Ordered Lab Info OTHER ONE (01:45)
[2017-09-29] MEDS: Vancomycin Inj 1,250 MG in Sodium Chlor 0.9% Inj 250 ML IV.SIG SCH ×2 (02:20→15:49)
[2017-09-29] MEDS: Folic Acid 1 MG Tablet PO SCH (08:48)
[2017-09-29] MEDS: Senna/Docusate Sodium 8.6/50 MG Tablet PO SCH ×2 (08:48→21:14)
--- NOTE | 2017-09-29 14:38 | P.PN ---
Physical Exam Vital signs: Vital Signs 09/28/17 16:00 09/28/17 20:00 09/29/17 00:00 Temperature 98 F 97.9 F 97.5 F L Pulse Rate 64 67 70 Respiratory Rate 20 20 20 Blood Pressure 132/82 119/79 119/69 Pulse Oximetry 100 100 99 09/29/17 04:00 09/29/17 08:00 09/29/17 12:00 Temperature 97.6 F 98.2 F 98.0 F Pulse Rate 71 66 66 Respiratory Rate 20 19 16 Blood Pressure 119/77 120/79 118/75 Pulse Oximetry 98 100 98 Intake & Output 09/28/17 09/29/17 09/29/17 18:59 06:59 18:59 Intake Total 262.5 / 262.5 Balance 262.5 / 262.5 Weight 64.9 kg Intake: IV 262.5 / 262.5 Vancomycin Inj 1,250 MG In NS 262.5 / 262.5 Inj 250 ML @ 250 mls/hr IV.SIG Q12H [facility] Rx#:[id number] Other: # Voids 1 1 Date of Last Bowel Movement 09/28/17 09/28/17 09/28/17 # Bowel Movements 1 Narrative: Subjective Interval history: pain in her hand is improved. No fever or chills/ nO n/v/d/c. Physical Exam GENERAL: 47 yo male, awake and alert doesn't appear in acute distress CARDIOVASCULAR: Regular rate and rhythm without murmurs, gallops, or rubs. RESPIRATORY: Breath sounds equal bilaterally. No accessory muscle use. GASTROINTESTINAL: Abdomen soft, non-tender, nondistended. MUSCULOSKELETAL: left hand- lateral aspect of the hand- with open wound/ superficial that , no surrounding erythema, dry. Left wrist with/hand- decrease swelling- better range of motion. BACK: Nontender without obvious deformity. No CVA tenderness. Assessment and Plan 47 year old right handed female with history of EtOH abuse, gastritis , MRSA abscess/cellulitis, depression, anxiety, and homelessness admitted for recurrent left fifth digit/hand cellulitis. Right hand cellulitis with open wound lateral aspect of the hand with denuded skin- possibly an abscess that popped already - Afebrile and no leukocytosis but patient tachycardic and lactic acid is 2.5 on admission - XR with no signs of bony involvement. MRI of the hand negative for any OM or deep tissue infection - Hand surgery consulted- - appreiated. antibiotics + wound care - Wound care nurse consulted - IV vancomycin with pharmacy to dose - Wound culture- negative - Blood cultures pending- negative so far - [place] and Toradol PRN - Zofran PRN EtOH abuse - Rally pack with MTV, thiamin, folic acid - [place] protocol - Seizure precautions - counselled extensively- - [facility] referral - CM consutled Gastritis- good po - H/O UGIB December 2016 - Protonix Anemia - PPI - Hemoglobin ~9 which is stable since GI bleed in 2017 - Monitor Hypokalemia- replaced IV and po- cont to monitor and replace as need DVT prophylaxis: Lovenox PT consult- up and ambulate Results - Labs CBC & Chem 7: 09/26/17 07:57 09/28/17 09:28 Laboratory Results - last 24 hr 09/29/17 02:00 Vancomycin Trough 13.2 H Microbiology 09/25/17 10:00 Blood - Peripheral Aerobic Blood Culture - Preliminary No growth in 4 days 09/25/17 10:00 Blood - Peripheral Anaerobic Blood Culture - Preliminary No growth in 4 days 09/25/17 10:05 Blood - Peripheral Aerobic Blood Culture - Preliminary No growth in 4 days 09/25/17 10:05 Blood - Peripheral Anaerobic Blood Culture - Preliminary No growth in 4 days - Imaging Impressions Hand MRI 09/26/17 00:00 CONCLUSION: 1. I do not see evidence for rest myelitis or deep space abscess beneath the large wound lateral to the fifth metacarpal. Assessment and Plan - Assessment (1) Cellulitis of hand Code(s): L03.119 - Cellulitis of unspecified part of limb Status: Acute (2) Sepsis Code(s): A41.9 - Sepsis, unspecified organism Status: Acute
[2017-09-29] MEDS: Enoxaparin Inj 40 MG/0.4 ML Syringe SQ SCH (15:49)
[2017-09-29] MEDS: Temazepam 15 MG Capsule PO PRN (21:10)
[2017-09-30] MEDS: Vancomycin Inj 1,250 MG in Sodium Chlor 0.9% Inj 250 ML IV.SIG SCH ×3 (02:50→14:58)
[2017-09-30] MEDS: Senna/Docusate Sodium 8.6/50 MG Tablet PO SCH ×2 (08:03→21:25)
[2017-09-30] MEDS: Folic Acid 1 MG Tablet PO SCH (08:03)
--- NOTE | 2017-09-30 09:03 | P.PN ---
Physical Exam Vital signs: Vital Signs 09/29/17 12:00 09/29/17 16:00 09/29/17 21:00 Temperature 98.0 F 98.3 F 98.5 F Pulse Rate 66 70 Respiratory Rate 16 16 16 Blood Pressure 118/75 115/70 120/79 Pulse Oximetry 98 100 98 09/30/17 00:40 09/30/17 05:20 Temperature 97.9 F 98 F Pulse Rate 66 69 Respiratory Rate 17 17 Blood Pressure 125/75 128/80 Pulse Oximetry 97 96 Intake & Output 09/29/17 09/30/17 09/30/17 18:59 06:59 18:59 Intake Total 262.5 / 262.5 1450 / 1450 Balance 262.5 / 262.5 1450 / 1450 Weight 65 kg Intake: IV 262.5 / 262.5 Vancomycin Inj 1,250 MG In NS 262.5 / 262.5 Inj 250 ML @ 250 mls/hr IV.SIG Q12H RAFI Rx#:[id number] Oral 1450 / 1450 Other: # Voids 7 3 Date of Last Bowel Movement 09/28/17 09/29/17 # Bowel Movements 1 0 Narrative: Subjective Interval history: pain in her hand is improved. Has normal range of motion of the hand. No fever or chills/ nO n/v/d/c. The patient is homeless Physical Exam GENERAL: 47 yo male, awake and alert doesn't appear in acute distress CARDIOVASCULAR: Regular rate and rhythm without murmurs, gallops, or rubs. RESPIRATORY: Breath sounds equal bilaterally. No accessory muscle use. GASTROINTESTINAL: Abdomen soft, non-tender, nondistended. MUSCULOSKELETAL: left hand- lateral aspect of the hand- with open wound/ superficial that , no surrounding erythema, dry. Left wrist with/hand- decrease swelling- better range of motion. BACK: Nontender without obvious deformity. No CVA tenderness. Assessment and Plan 47 year old right handed female with history of EtOH abuse, gastritis , MRSA abscess/cellulitis, depression, anxiety, and homelessness admitted for recurrent left fifth digit/hand cellulitis. Right hand cellulitis with open wound lateral aspect of the hand with denuded skin- possibly an abscess that popped already - Afebrile and no leukocytosis but patient tachycardic and lactic acid is 2.5 on admission - XR with no signs of bony involvement. MRI of the hand negative for any OM or deep tissue infection - Hand surgery consulted- - appreciated. antibiotics + wound care - Wound care nurse consulted - IV vancomycin with pharmacy to dose. We will consider switching to p.o. antibiotics as blood cultures are negative's. - Wound culture- negative - Blood cultures pending- negative so far - [place] and Toradol PRN - Zofran PRN EtOH abuse - Rally pack with MTV, thiamin, folic acid - [place] protocol - Seizure precautions - counselled extensively- - [facility] referral - consutled Gastritis- good po - H/O UGIB December 2016 - Protonix Anemia - PPI - Hemoglobin ~9 which is stable since GI bleed in 2017 - Monitor Hypokalemia- replaced IV and po- cont to monitor and replace as need DVT prophylaxis: Lovenox PT consult- up and ambulate Patient is homeless is management consulted for discharge planning. Possible discharge tomorrow Results - Labs CBC & Chem 7: 09/26/17 07:57 09/28/17 09:28 Microbiology 09/25/17 10:00 Blood - Peripheral Aerobic Blood Culture - Preliminary No growth in 4 days 09/25/17 10:00 Blood - Peripheral Anaerobic Blood Culture - Preliminary No growth in 4 days 09/25/17 10:05 Blood - Peripheral Aerobic Blood Culture - Preliminary No growth in 4 days 09/25/17 10:05 Blood - Peripheral Anaerobic Blood Culture - Preliminary No growth in 4 days Assessment and Plan - Assessment (1) Cellulitis of hand Code(s): L03.119 - Cellulitis of unspecified part of limb Status: Acute (2) Sepsis Code(s): A41.9 - Sepsis, unspecified organism Status: Acute
[2017-09-30] MEDS: Enoxaparin Inj 40 MG/0.4 ML Syringe SQ SCH (16:58)
--- NOTE | 2017-09-30 19:12 | P.DS ---
Date of admission: 09/25/17 12:16 Primary care physician: No Primary Care Physician Brief History from admission: 47 year old female with history of EtOH abuse, gastritis, MRSA abscess /cellulitis, depression, anxiety, and homelessness presenting with progressive pain, erythema, and swelling of her left 5th finger/medial hand. She states she had an infection in this region that required I&D back in March and in the past two weeks the infection has returned. She reports compliance with outpatient antibiotics when she was discharged from the hospital. She thinks she may have gotten a spider bite. She endorses redness, swelling, and pain with movement of her left fifth finger. In the last week the area has been draining a green purulent material. She also reports a scabbed wound on her right forearm and left upper back that she thinks appeared around the same time. She endorses subjective fever and chills and in the past few days has been nauseous with vomiting and diarrhea. She denies abdominal pain, chest pain , shortness of breath, headache, or rash. She complains of chronic dizziness. 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 However, she denies any cat bites or scratches. She has a history of IV heroin use over ten years ago but denies any use since then. She drinks alcohol daily and states she consumes about 12 beers daily. 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 DS: Diagnosis - Discharge Diagnosis (1) Cellulitis of hand Status: Acute (2) Sepsis Status: Acute DS: Medications - Discharge Medications Prescriptions: folic acid 1 mg PO DAILY #30 tab sulfamethoxazole-trimethoprim [Bactrim DS] 1 tab PO Q12H #20 tab thiamine HCl (vitamin B1) 100 mg PO BID #30 tab DS: Summary Hospital Course: 47 year old right handed female with history of EtOH abuse, gastritis , MRSA abscess/cellulitis, depression, anxiety, and homelessness admitted for recurrent left fifth digit/hand cellulitis. Right hand cellulitis with open wound lateral aspect of the hand with denuded skin- possibly an abscess that popped already - Afebrile and no leukocytosis but patient tachycardic and lactic acid is 2.5 on admission - XR with no signs of bony involvement. MRI of the hand negative for any OM or deep tissue infection - Hand surgery consulted- - appreciated. antibiotics + wound care - Wound care nurse consulted - IV vancomycin with pharmacy to dose. We will consider switching to p.o. antibiotics as blood cultures are negative's. - Wound culture- negative - Blood cultures negative x 5 days . DC on bactrim po , to follow up with wound care as OP. - [place] and Toradol PRN - Zofran PRN EtOH abuse - Rally pack with MTV, thiamin, folic acid - [facility]WA protocol did not received benzos - Seizure precautions - counselled extensively- - [facility] referral - consutled Gastritis- good po - H/O UGIB December 2016 - Protonix Anemia - PPI - Hemoglobin ~9 which is stable since GI bleed in 2017 - Monitor Hypokalemia- replaced IV and po- cont to monitor and replace as need DVT prophylaxis: Lovenox PT consult- up and ambulate Patient is homeless is management consulted for discharge planning. Blood cultures are negative x 5 days DC on bactrim PO , to follow up as OP with wound care - Time Spent with Patient Total time spent providing and/or coordinating discharge services: Greater than 30 minutes Exam Vital signs: Vital Signs 09/29/17 21:00 09/30/17 00:40 09/30/17 05:20 Temperature 98.5 F 97.9 F 98 F Pulse Rate 66 69 Respiratory Rate 16 17 17 Blood Pressure 120/79 125/75 128/80 Pulse Oximetry 98 97 96 09/30/17 08:00 09/30/17 12:00 09/30/17 16:00 Temperature 98.5 F 98.4 F 98.1 F Pulse Rate 81 62 59 L Respiratory Rate 18 18 18 Blood Pressure 127/86 128/72 140/78 Pulse Oximetry 99 100 100 Intake & Output 09/30/17 09/30/17 10/01/17 06:59 18:59 06:59 Intake Total 1712.5 / 1712.5 Balance 1712.5 / 1712.5 Weight 65 kg Intake: IV 262.5 / 262.5 Vancomycin Inj 1,250 MG In NS 262.5 / 262.5 Inj 250 ML @ 250 mls/hr IV.SIG Q12H RAFI Rx#:[id number] Oral 1450 / 1450 Other: # Voids 3 Date of Last Bowel Movement 09/29/17 # Bowel Movements 0 Narrative: GENERAL: 47 yo male, awake and alert doesn't appear in acute distress CARDIOVASCULAR: Regular rate and rhythm without murmurs, gallops, or rubs. RESPIRATORY: Breath sounds equal bilaterally. No accessory muscle use. GASTROINTESTINAL: Abdomen soft, non-tender, nondistended. MUSCULOSKELETAL: left hand- lateral aspect of the hand- with open wound/ superficial that , no surrounding erythema, dry. Left wrist with/hand- decrease swelling- better range of motion. BACK: Nontender without obvious deformity. No CVA tenderness. Results Procedures completed during hospitalization: no procedures - Impressions ITS Impressions Hand X-Ray 09/25/17 00:00 CONCLUSION: Unremarkable study. Chest X-Ray 09/25/17 09:58 CONCLUSION: No acute cardiopulmonary disease. Hand MRI 09/26/17 00:00 CONCLUSION: 1. I do not see evidence for rest myelitis or deep space abscess beneath the large wound lateral to the fifth metacarpal. Discharge Plan - Discharge Disposition Patient Disposition: 01 Discharge Home - Discharge Condition Condition: Stable - Discharge Order Discharge Orders: Discharge Order (Routine); Ordered 10/01/17 Ordered By: Lacie Romano - Discharge Details Anticipated Discharge Date: 09/25/17 - Physicians Team Primary Care Provider: Primary Care Physici,No Attending Provider: Lacie Romano Other Providers: Mike Wright MD
[2017-09-30] MEDS: Temazepam 15 MG Capsule PO PRN (21:24)
[2017-10-01] MEDS: Vancomycin Inj 1,250 MG in Sodium Chlor 0.9% Inj 250 ML IV.SIG SCH (02:49)
[2017-10-01] MEDS: Folic Acid 1 MG Tablet PO SCH (08:04)
[2017-10-01] MEDS: Senna/Docusate Sodium 8.6/50 MG Tablet PO SCH (08:05)
[2017-10-04] MEDS ORDERED: Pharmacy Ordered Lab Info OTHER SCH (01:45)
[2017-10-05 17:53] VITALS: BP 138/84; PULSE 63; TEMP 98.1; O2SAT 100
[2017-10-05 18:13] VITALS: RESP 16
== END 2017-10-01 15:09 | disposition home or self-care (01) ==
LOC: NEDA 09:30 → NEPC 09:30 → NEDA 13:05 → N05 15:10
PROVIDERS: ADMIT Hospitalist; ATTEND Hospitalist